=== PATIENT | female | born 1975 | race Caucasian/White ===

== ENCOUNTER 2019-09-02 13:25 | Emergency (ER) | payer SELFPAY ==
[2019-09-02 13:55] VITALS: BP 123/94; PULSE 81; RESP 18; TEMP 36.9; O2SAT 95; BMI 24.1
--- NOTE | 2019-09-02 14:09 | PC.NURSE ---
Patient requests that her sister, Sharon be contacted so that someone knows she is here. Sharon has been contacted at [phone]. Sharon is willing to come to the ER and pick patient up once discharged.
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
--- NOTE | 2019-09-02 15:03 | CT_ITS ---
WS: [id number] CT scan of the head, 09/02/2019 Clinical Data: injury Comparison: CT head, 12/05/2010. DLP: 615.[address] scans at [facility] use at least one of these dose optimization techniques: automat ed exposure control; mA and/or kV adjustment per patient size (includes targeted exams where dose is matched to clinical indication); or iterative reconstruction. Findings: The ventricular system is normal without shift. No recent infarct or hemorrhage is seen. There are no abnormal intracerebral masses. The cerebellum and brainstem are not remarkable. Bony windows of the skull and skull base show no fractures or erosions. The mastoid air cells, public relations intern al auditory canals, sella turcica, intraorbital contents, and paranasal sinuses show minimal mucoperi osteal thickening of the left frontal and right sphenoid sinus. CT/CT head wo con* [id number] Impression: Negative CT scan of the head
--- NOTE | 2019-09-02 15:03 | CT_ITS ---
WS: [id number] CT cervical spine. Additional two-dimensional coronal and sagittal reconstruction was performed. 09/01 Clinical Data: injury Comparison: CT cervical spine, 11/25/2009. DLP: 615.35 mG-cm All CT scans at [facility] use at least one of these dose optimization techniques: automat ed exposure control; mA and/or kV adjustment per patient size (includes targeted exams where dose is matched to clinical indication); or iterative reconstruction. Findings: No compression fractures are seen. There is disc space narrowing at C4-C5, C5-C6 and C6-C7. Anterior and posterior osteophyte formation at these levels is seen. The cervical spinous processes are normal in good alignment. The odontoid is unremarkable. There is no prevertebral soft tissue swelling. The soft tissues of the cervical spine and the lung apices are not remarkable. There is an old right pilar ibular fracture reduced with a plate and screws. CT/CT cervical spin wo con* [id number] Impression: 1. Negative for cervical spine fracture. 2. Osteoarthritis from C3-C7 with accompanying disc space narrowing.
--- NOTE | 2019-09-02 15:03 | XR_ITS ---
WS: [id number] Right leg including the tibia and fibula, 3 views, 09/02/2019 Clinical Data: injury Comparison: Right ankle x-ray, 09/08/2014. Findings: No fractures or dislocations are seen. The tibia and fibula are intact. The soft tissues are normal. The visualized right knee and right ankle are not remarkable. XR/XR tibia fibula RT 2V 66747 Impression: Negative for fracture.
--- NOTE | 2019-09-02 15:03 | XR_ITS ---
WS: [id number] XR wrist LT min 3V* [id number] REASON FOR EXAM: injury FINDINGS: A fractures seen off the styloid process of the ulna ages undetermined. The remaining ulna and radius were normal with no fractures or displacement. There is no soft tissue swelling seen. XR/XR wrist LT min 3V* [id number] IMPRESSION: Mild fracture off the styloid process of the ulna the age is undetermined.
[2019-09-02] MEDS: HYDROcodone-acetaminophen 5-325 mg Tablet 1 TAB PO (15:08)
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
--- NOTE | 2019-09-02 15:54 | PC.NURSE ---
Patient to CT via stretcher
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
[2019-09-02 17:06] VITALS: BP 140/75; PULSE 75; RESP 14; O2SAT 98
--- NOTE | 2019-09-03 11:58 | DCPLANNER ---
marketing manager health communications had message to schedule a follow up appointment for patient with ortho. marketing manager health communications called clinic, spoke with Sharee, gave clinic patients information. marketing manager health communications was told that patients information would be printed and reviewed. Clinic will call rehabilitation caseworker and patient with appointment information.
--- NOTE | 2019-09-04 10:41 | DCPLANNER ---
Patient had an appointment scheduled for 09.03.19 with ortho, patient did attend the appointment.
== END 2019-09-02 17:07 | disposition home or self-care (01) ==
PROVIDERS: Emergency Provider Emergency Medicine; Family Provider General Practice; PCP General Practice
DX: S52.612A Displaced fracture of left ulna styloid process, initial encounter for closed fracture (principal); S00.83XA Contusion of other part of head, initial encounter; F17.200 Nicotine dependence, unspecified, uncomplicated; Y04.2XXA Assault by strike against or bumped into by another person, initial encounter
CPT/HCPCS: 12345; 29125; 70450; 72125; 73110; 73590; 99281; 99283

== ENCOUNTER 2019-09-03 15:58 | Outpatient (CLI) | payer SELFPAY | END 2019-09-03 15:59 | disposition home or self-care (01) | LOC: SPT 15:59 | PROVIDERS: Family Provider General Practice; PCP General Practice; Visit Provider Orthopaedic Surgery | DX: M25.532 Pain in left wrist (principal) | CPT/HCPCS: L3908 ==

== ENCOUNTER 2020-02-19 14:24 | Emergency (ER) | payer SELFPAY ==
[2020-02-19 14:26] VITALS: BP 119/88; PULSE 82; RESP 16; TEMP 36.3; O2SAT 96; BMI 25.4
--- NOTE | 2020-02-19 14:40 | XRR_ITS ---
PROCEDURE INFORMATION: Exam: XR Chest, 1 View Exam date and time: 02/19/2020 2:53 PM Age: 44 years old Clinical indication: Patient HX: C/O shortness of breath ; left leg swelling; Nausea; Additional info: SOB TECHNIQUE: Imaging protocol: XR of the chest Views: 1 view. COMPARISON: CT Chest/Abdomen/Pelvis wo IV 11/15/2015 6:33 PM FINDINGS: Lungs: Mildly hyperaerated lungs consistent with deep inspiratory effort vs reactive airway disease vs mild COPD . Pleural space: Unremarkable. No pleural effusion. No pneumothorax. Heart/Mediastinum: Unremarkable. No cardiomegaly. Bones/joints: Unremarkable. XR/XR chest 1V portable [id number] IMPRESSION: Mildly hyperaerated lungs consistent with deep inspiratory effort vs reactive airway disease vs mild COPD .
--- NOTE | 2020-02-19 14:41 | ED_ITS ---
HPI - Extremity Problem General: Chief complaint: Extremity Problem,Nontraumatic Stated complaint: left leg swelling Time Seen by Provider: 02/19/20 14:33 History of Present Illness: HPI Narrative: This patient is a 44-year-old female who presents today with concerns over pain in her left leg. She noticed a bruise on the back of her leg 2 days ago and gradually the area has enlarged and become more tender and swollen. She has some tingling in her toes but no overt swelling in the lower leg. She does not know how the bruise happened. She does not recall any injury. Since she noted the bruise she also has been complaining of shortness of breath, chest heaviness, orthopnea, nausea and vomiting. She also has been having diarrhea and has had some blood in the stool. She said there is some bright red blood in the stool itself is dark. She has no history of any kind of bleeding ulcers. She smokes marijuana. She drinks about a third of a pint of vodka every day. She has been told in the past that her liver functions were abnormal but at the time she was taking lithium and blamed it on that. She has not had any recheck of her liver since then. Her PCP was Dr. Pedersen. She has had a blood clot in the past, following gallbladder surgery. She was on short-term anticoagulation but is not currently. She is a smoker. Her mother also had blood clots in her 40s. MD Complaint: extremity pain, extremity swelling and other Onset (ago): day(s) (2) Pain Consistency: constant Location: left Quality: aching Radiation: none Relieving factors: nothing Exacerbating factors: range of motion and palpation Associated symptoms: Reports chest pain, myalgias and short of breath; Deny fever(s) or rash Review of Systems General: Reports: 10 or more systems reviewed and unremarkable except in HPI and below Const: Reports: malaise; Denies: fever(s), chills or fatigue Eyes: Denies: change in vision ENMT: Denies: odynophagia Card: Reports: chest pain and orthopnea Resp: Denies: dyspnea, productive cough or non-productive cough GI: Reports: nausea and vomiting; Denies: abdominal pain : Denies: flank pain or difficulty voiding Musc: Denies: neck pain or back pain Skin/Breast: Denies: rash Neuro: Denies: headache(s), numbness in extremities or weakness in extremities Lewis/Lymph: Denies: easy bruising or easy bleeding PFSH ED PFSH: Medical History DVT (deep venous thrombosis) Fracture of left wrist Social History Smoking and tobacco status: current every day smoker Physical Exam Const: COMMON NORMALS: no acute distress, patient oriented x3, no limitations and alert GENERAL APPEARANCE: cooperative and comfortable HENMT: HEAD & SCALP: normal to inspection FACE & SINUS: normal facial exam Eye: GENERAL EYE: appearance normal, both eyes and all related structures Neck/C-Spine: COMMON NORMALS: supple, no meningeal signs and no JVD Chest: COMMONS NORMALS: normal inspection of the chest Resp: COMMON NORMALS: normal respiratory effort, No use of accessory muscles and clear to auscultation bilaterally AUSCULTATION: clear to auscultation bilaterally Cardio: COMMON NORMALS: no JVD, regular rate, regular rhythm and No murmurs present (Cardio) RATE: regular rate RHYTHM: regular rhythm GI: COMMON NORMALS: Normal to inspection, nondistended, normoactive bowel sounds present, Soft to palpation and non-tender INSPECTION: Yes normal to inspection AUSCULTATION: Yes normoactive bowel sounds PALPATION: Yes Soft to palpation Back/Pelvis: COMMON NORMALS: thoracic and lumbar spine normal to inspection Extremity: GENERAL: Yes normal exam except as noted EXTREMITY IMAGE (BACK): 1. Ecchymosis, nodular and tender Neuro: COMMON NORMALS: patient oriented x3, moves all extremities, no focal motor deficits and no sensory deficits noted SENSORIUM/ORIENTATION: Yes alert MENINGEAL SIGNS: Yes no meningeal signs Psych: COMMON NORMALS: mental status grossly normal, cooperative and normal affect Skin: COMMON NORMALS: no rashes or lesions noted and turgor normal GENERAL SKIN EXAM: no rashes or lesions noted and turgor normal Course ED course: Patient's labs show a normal d-dimer, elevated creatinine. No prior labs noted in our system. She had the ultrasound of her leg done but the results are not yet available. She got agitated and left before I had a chance to speak to her and ask her to wait. Vital Signs: Vital signs: Vital Signs Temperature 97.3 F L 02/19/20 14:26 Pulse Rate 87 02/19/20 17:16 Respiratory Rate 14 02/19/20 17:16 Blood Pressure 122/58 02/19/20 17:16 Pulse Oximetry 100 02/19/20 17:16 MDM - Extremity (Nontraumatic) Lab Data: Labs: Lab Results 02/19/20 02/19/20 02/19/20 Range/Units 14:57 14:57 14:57 WBC 8.8 (4.0-10.0) 10^3/ uL RBC 4.41 (4.1-5.3) 10^6/u L Hgb 13.6 (11.5-15.3) g/dL Hct 41.3 (37.0-47.0) % MCV 93.7 (81-99) fL MCH 30.8 (28.0-34.0) pg MCHC 32.9 (30.0-36.0) g/dL RDW 13.6 (12.1-15.1) % Plt Count 276 (130-400) 10^3/c mm MPV 9.3 (7.4-10.4) fL Neut % (Auto) 66.5 % Lymph % (Auto) 25.7 % [place] % (Auto) 5.4 % Eos % (Auto) 1.4 % Baso % (Auto) 0.8 % Neut # (Auto) 5.84 (1.8-7.7) 10^3/u L Lymph # (Auto) 2.3 (0.8-4.8) 10^3/u L [place] # (Auto) 0.5 (0.2-0.9) 10^3/u L Eos # (Auto) 0.1 (0.0-0.8) 10^3/u L Baso # (Auto) 0.1 (0.0-0.1) 10^3/u L Nucleated RBC % (a uto) 0 % Nucleated RBCs # 0.0 /100WBC PT 12.90 (12.1-14.9) SECO NDS INR 0.94 (0.8-1.2) D-Dimer <= 0.27 (0-0.59) ug/mIFE U Sodium 140 (136-145) mmol/L Potassium 4.2 (3.5-5.1) mmol/L Chloride 106 (98-107) mmol/L Carbon Dioxide 22 (22-29) mmol/L Anion Gap 16.2 (5-19) BUN 13 (6-20) mg/dL Creatinine 1.8 H (0.5-0.9) mg/dL GFR Calculation 30.3 L (90-130) mL/min Glucose 96 (65-115) mg/dL Calculated Osmolal ity 286 (285-295) mOsm/k g Lactic Acid (0.5-2.2) mmol/L Calcium 9.2 (8.5-10.5) mg/dL Magnesium 1.8 (1.7-2.3) mg/dL Total Bilirubin 0.3 (0.15-1.2) mg/dL AST 22 (0-32) U/L ALT 27 (0-33) U/L Alkaline Phosphata se 112 H (35-105) IU/L Troponin T Baselin e (0-10) ng/L Troponin T 120 Min [place] (0-10) ng/L Delta Troponin T (0-10) ABS# NT-Pro-B Natriuret Pep 57 (0-125) pg/mL Total Protein 6.9 (6.6-8.7) g/dL Albumin 3.7 (3.5-5.2) g/dL Globulin 3.2 (1.3-4.6) g/dL Lipase 48 (13-60) U/L Urine Color (Yellow) Urine Appearance (CLEAR) Urine pH (5-7) Ur Specific Gravit y (1.005-1.030) Urine Protein (Negative) Urine Glucose (UA) (Normal) Urine Ketones (Negative) Urine Blood (Negative) Urine Nitrate (Negative) Urine Bilirubin (NEGATIVE) Urine Urobilinogen (Negative) mg/dL Ur Leukocyte Lisa ase (Negative) Urine RBC (0-2) /hpf Urine WBC (0-5) /hpf Ur Squamous Epith Cells (0-5) Amorphous Sediment Urine Bacteria (NONE) Ethyl Alcohol 58 H (0-10) mg/dL Blood Type Rho(D) Type Antibody Screen 02/19/20 02/19/20 02/19/20 Range/Units 14:57 14:57 14:57 WBC (4.0-10.0) 10^3/ uL RBC (4.1-5.3) 10^6/u L Hgb (11.5-15.3) g/dL Hct (37.0-47.0) % MCV (81-99) fL MCH (28.0-34.0) pg MCHC (30.0-36.0) g/dL RDW (12.1-15.1) % Plt Count (130-400) 10^3/c mm MPV (7.4-10.4) fL Neut % (Auto) % Lymph % (Auto) % [place] % (Auto) % Eos % (Auto) % Baso % (Auto) % Neut # (Auto) (1.8-7.7) 10^3/u L Lymph # (Auto) (0.8-4.8) 10^3/u L [place] # (Auto) (0.2-0.9) 10^3/u L Eos # (Auto) (0.0-0.8) 10^3/u L Baso # (Auto) (0.0-0.1) 10^3/u L Nucleated RBC % (a uto) % Nucleated RBCs # /100WBC PT (12.1-14.9) SECO NDS INR (0.8-1.2) D-Dimer (0-0.59) ug/mIFE U Sodium (136-145) mmol/L Potassium (3.5-5.1) mmol/L Chloride (98-107) mmol/L Carbon Dioxide (22-29) mmol/L Anion Gap (5-19) BUN (6-20) mg/dL Creatinine (0.5-0.9) mg/dL GFR Calculation (90-130) mL/min Glucose (65-115) mg/dL Calculated Osmolal ity (285-295) mOsm/k g Lactic Acid 2.5 H (0.5-2.2) mmol/L Calcium (8.5-10.5) mg/dL Magnesium (1.7-2.3) mg/dL Total Bilirubin (0.15-1.2) mg/dL AST (0-32) U/L ALT (0-33) U/L Alkaline Phosphata se (35-105) IU/L Troponin T Baselin e 6 (0-10) ng/L Troponin T 120 Min [place] (0-10) ng/L Delta Troponin T (0-10) ABS# NT-Pro-B Natriuret Pep (0-125) pg/mL Total Protein (6.6-8.7) g/dL Albumin (3.5-5.2) g/dL Globulin (1.3-4.6) g/dL Lipase (13-60) U/L Urine Color (Yellow) Urine Appearance (CLEAR) Urine pH (5-7) Ur Specific Gravit y (1.005-1.030) Urine Protein (Negative) Urine Glucose (UA) (Normal) Urine Ketones (Negative) Urine Blood (Negative) Urine Nitrate (Negative) Urine Bilirubin (NEGATIVE) Urine Urobilinogen (Negative) mg/dL Ur Leukocyte Lisa ase (Negative) Urine RBC (0-2) /hpf Urine WBC (0-5) /hpf Ur Squamous Epith Cells (0-5) Amorphous Sediment Urine Bacteria (NONE) Ethyl Alcohol (0-10) mg/dL Blood Type O Positive Rho(D) Type Positive Antibody Screen Negative 02/19/20 02/19/20 Range/Units 14:58 17:10 WBC (4.0-10.0) 10^3/ uL RBC (4.1-5.3) 10^6/u L Hgb (11.5-15.3) g/dL Hct (37.0-47.0) % MCV (81-99) fL MCH (28.0-34.0) pg MCHC (30.0-36.0) g/dL RDW (12.1-15.1) % Plt Count (130-400) 10^3/c mm MPV (7.4-10.4) fL Neut % (Auto) % Lymph % (Auto) % [place] % (Auto) % Eos % (Auto) % Baso % (Auto) % Neut # (Auto) (1.8-7.7) 10^3/u L Lymph # (Auto) (0.8-4.8) 10^3/u L [place] # (Auto) (0.2-0.9) 10^3/u L Eos # (Auto) (0.0-0.8) 10^3/u L Baso # (Auto) (0.0-0.1) 10^3/u L Nucleated RBC % (a uto) % Nucleated RBCs # /100WBC PT (12.1-14.9) SECO NDS INR (0.8-1.2) D-Dimer (0-0.59) ug/mIFE U Sodium (136-145) mmol/L Potassium (3.5-5.1) mmol/L Chloride (98-107) mmol/L Carbon Dioxide (22-29) mmol/L Anion Gap (5-19) BUN (6-20) mg/dL Creatinine (0.5-0.9) mg/dL GFR Calculation (90-130) mL/min Glucose (65-115) mg/dL Calculated Osmolal ity (285-295) mOsm/k g Lactic Acid (0.5-2.2) mmol/L Calcium (8.5-10.5) mg/dL Magnesium (1.7-2.3) mg/dL Total Bilirubin (0.15-1.2) mg/dL AST (0-32) U/L ALT (0-33) U/L Alkaline Phosphata se (35-105) IU/L Troponin T Baselin e (0-10) ng/L Troponin T 120 Min [place] 6.00 (0-10) ng/L Delta Troponin T 0 (0-10) ABS# NT-Pro-B Natriuret Pep (0-125) pg/mL Total Protein (6.6-8.7) g/dL Albumin (3.5-5.2) g/dL Globulin (1.3-4.6) g/dL Lipase (13-60) U/L Urine Color Yellow (Yellow) Urine Appearance Clear (CLEAR) Urine pH 5 (5-7) Ur Specific Gravit y 1.025 (1.005-1.030) Urine Protein Neg (Negative) Urine Glucose (UA) Norm (Normal) Urine Ketones 1+ H (Negative) Urine Blood 3+ H (Negative) Urine Nitrate Negative (Negative) Urine Bilirubin Neg (NEGATIVE) Urine Urobilinogen Norm (Negative) mg/dL Ur Leukocyte Lisa ase Negative (Negative) Urine RBC 15-25 H (0-2) /hpf Urine WBC 5-10 H (0-5) /hpf Ur Squamous Epith Cells 0-4 H (0-5) Amorphous Sediment Not Reportable Urine Bacteria 3+ H (NONE) Ethyl Alcohol (0-10) mg/dL Blood Type Rho(D) Type Antibody Screen Discharge Plan Discharge Patient Disposition: Left Against Medical Advice Clinical Impression: Contusion Qualifiers: Encounter type: initial encounter Contusion area: thigh Laterality: left Qualified Code(s): S70.12XA - Contusion of left thigh, initial encounter Condition: Stable Prescriptions: No Action No Known Home Medications RF: 0 Referrals: Jose Alejandro Eng MD [Primary Care Provider] - Discharge Date/Time: 02/19/20 17:40 Coding Level of Care Code ED Manager Plan for Chg Fwd Exam Comprehensive
--- NOTE | 2020-02-19 14:41 | ECG_ITS ---
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 Measurements Intervals [place] Rate: 63 P: 37 MO: 152 QRS: 66 QRSD: 91 T: 70 QT: 428 QTc: 441 Interpretive Statements SINUS RHYTHM No previous ECG available for comparison Electronically Signed On 02-19-2020 18:51:11 CDT by Josiane Keith M.D. [email or web address]/store/NU/[id number] f
[2020-02-19 15:00] VITALS: BP 119/88; PULSE 72; RESP 14; O2SAT 96
--- NOTE | 2020-02-19 15:15 | USCV_ITS ---
Emeka Lewis Age: 44 Gender: F : 1975 Exam Date: 02/19/2020 16:01 Ordering Phys: Kari Harry MD Technologist: Chetna Solis Exam Location: [facility] [place] Indication: PAIN AND SWELLING HISTORY: Lower extremity swelling. Lower extremity pain. PROCEDURES: Venous duplex imaging was performed in only the left lower extremity. The following venous structures were evaluated: common femoral vein, profunda vein, proximal portion of the greater saphenous vein, superficial femoral vein, and the popliteal vein. In addition, the posterior tibial and peroneal trunk were evaluated. FINDINGS: Normal 2-D Doppler and augmentation and compressibility throughout the lower extremity venous structures. Additional imaging through the proximal calf veins also reveals no thrombus. Limited evaluation of the greater saphenous vein is patent with no thrombus. CONCLUSIONS No DVT left lower extremity. Dr. Nica Vincent DO (Electronically Signed) Final Date: 20 February 2020 15:49 S
[2020-02-19 15:22] LABS: Basophils # 0.1 10^3/uL (0.0-0.1); Basophils % 0.8 %; Eosinophils # 0.1 10^3/uL (0.0-0.8); Eosinophils % 1.4 %; Hematocrit 41.3 % (37.0-47.0); Hemoglobin 13.6 g/dL (11.5-15.3); Lymphocytes # 2.3 10^3/uL (0.8-4.8); Lymphocytes % 25.7 %; Mean Corpuscular HGB Conc 32.9 g/dL (30.0-36.0); Mean Corpuscular Hemoglobin 30.8 pg (28.0-34.0); Mean Corpuscular Volume 93.7 fL (81-99); Mean Platelet Volume 9.3 fL (7.4-10.4); Monocytes # 0.5 10^3/uL (0.2-0.9); Monocytes % 5.4 %; Neutrophils # 5.84 10^3/uL (1.8-7.7); Neutrophils % 66.5 %; Nucleated Red Blood Cells % 0 %; Platelet Count 276 10^3/cmm (130-400); Red Blood Count 4.41 10^6/uL (4.1-5.3); Red Cell Distribution Width 13.6 % (12.1-15.1); White Blood Count 8.8 10^3/uL (4.0-10.0)
[2020-02-19 15:26] LABS: Add Urine Microscopic? YES; Bilirubin Urine Neg (NEGATIVE); Blood Urine 3+ (Negative); Glucose Urine UA Norm (Normal); Ketones Urine 1+ (Negative); Leukocyte Esterase Urine Negative (Negative); Nitrate Urine Negative (Negative); Protein Urine Neg (Negative); Specific Gravity, Urine 1.025 (1.005-1.030); Urine Appearance Clear (CLEAR); Urine Color Yellow (Yellow); Urobilinogen Urine Norm (Negative); pH Urine 5 (5-7)
[2020-02-19 15:32] LABS: Add Urine Culture? Yes; Bacteria Urine 3+; RBC Urine 15-25 /hpf (0-2); Squamous Epithelial Cell Urine 0-4 (0-5)
[2020-02-19 15:39] LABS: INR 0.94 (0.8-1.2)
[2020-02-19 15:42] LABS: D Dimer <= 0.27 ug/mIFEU (0-0.59)
[2020-02-19 15:51] LABS: Troponin(5th) Baseline 6 ng/L (0-10)
[2020-02-19 15:52] LABS: Lactic Sepsis W/Reflex 2.5 mmol/L (0.5-2.2)
[2020-02-19 15:55] LABS: Alanine Aminotransferase 27 U/L (0-33); Albumin Level 3.7 g/dL (3.5-5.2); Alcohol Level 58 mg/dL (0-10); Alkaline Phosphatase 112 IU/L (35-105); Anion Gap 16.2 (5-19); Aspartate Amino Transferase 22 U/L (0-32); Blood Urea Nitrogen 13 mg/dL (6-20); Calcium 9.2 mg/dL (8.5-10.5); Carbon Dioxide 22 mmol/L (22-29); Chloride 106 mmol/L (98-107); Globulin 3.2 g/dL (1.3-4.6); Glomerular Filtration Rate 30.3 mL/min (90-130); Glucose 96 mg/dL (65-115); Lipase 48 U/L (13-60); Magnesium 1.8 mg/dL (1.7-2.3); NT Pro B Type Natriuretic Pept 57 pg/mL (0-125); Osmolality Calculated 286 mOsm/kg (285-295); Potassium 4.2 mmol/L (3.5-5.1); Sodium 140 mmol/L (136-145); Total Bilirubin 0.3 mg/dL (0.15-1.2); Total Protein 6.9 g/dL (6.6-8.7)
[2020-02-19 15:58] VITALS: BP 120/79; PULSE 67; RESP 14; O2SAT 97
[2020-02-19] MEDS: ondansetron 2 mg/ML SDV 2 mL 4 MG IVP (16:17)
[2020-02-19 16:51] LABS: Reflex Lactate Order REFLEX LACTIC ORDERD
[2020-02-19 17:16] VITALS: BP 122/58; PULSE 87; RESP 14; O2SAT 100
[2020-02-19 17:42] LABS: Troponin 5 2HR Delta 0 ABS# (0-10)
== END 2020-02-19 17:40 | disposition left against medical advice (07) ==
PROVIDERS: Emergency Provider Emergency Medicine; PCP General Practice
DX: S70.12XA Contusion of left thigh, initial encounter (principal); Z53.21 Procedure and treatment not carried out due to patient leaving prior to being seen by health care provider; F17.210 Nicotine dependence, cigarettes, uncomplicated; X58.XXXA Exposure to other specified factors, initial encounter
CPT/HCPCS: 12345; 36415; 71045; 80053; 80307; 81001; 83605; 83690; 83735; 83880; 84484; 85025; 85378; 85610; 86850; 86900; 87077; 87086; 87186; 93005; 93971; 96374; 96375; 99282; 99284; J2405

== ENCOUNTER 2020-03-31 20:59 | Emergency (ER) | payer SELFPAY ==
[2020-03-31 21:00] VITALS: BP 111/77; PULSE 98; RESP 22; TEMP 36.7; O2SAT 99; BMI 25.8
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
[2020-03-31] MEDS: haloperidol inj 5 mg/mL INJ 1 mL IM (21:09)
[2020-03-31] MEDS: diphenhydrAMINE 50 mg/mL SDV 1mL IM (21:11)
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
--- NOTE | 2020-03-31 21:26 | W.ED.AMS ---
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 Protein (6.6-8.7) g/dL Albumin (3.5-5.2) g/dL Globulin (1.3-4.6) g/dL HCG, Qual (Negative) Urine Color Straw (Yellow) Urine Appearance Sl hazy (CLEAR) Urine pH 5 (5-7) Ur Specific Gravit y 1.005 (1.005-1.030) Urine Protein Neg (Negative) Urine Glucose (UA) Norm (Normal) Urine Ketones Negative (Negative) Urine Blood Neg (Negative) Urine Nitrate Negative (Negative) Urine Bilirubin Neg (Negative) Urine Urobilinogen Norm (Negative) mg/dL Ur Leukocyte Lisa ase 1+ H (Negative) Urine RBC Rare (0-2) /hpf Urine WBC 0-4 H (0-5) /hpf Ur Squamous Epith Cells 0-4 H (0-5) /hpf Amorphous Sediment Not Reportable Urine Bacteria Trace (NONE) /hpf Urine Mucus Trace /hpf Urine Opiates Scre en Negative (Negative) ng/mL Ur Barbiturates Sc reen Negative (Negative) ng/mL Ur Phencyclidine S crn Negative (Negative) ng/mL Ur Amphetamines Sc reen Positive H (Negative) ng/mL U Benzodiazepines Scrn Negative (Negative) ng/mL Urine Cocaine Scre en Negative (Negative) ng/mL U Marijuana (THC) Screen Positive H (Negative) ng/mL Ethyl Alcohol 19 H (0-10) mg/dL Discharge Plan Discharge Patient Disposition: Home Clinical Impression: Alcoholic intoxication Prescriptions: No Action No Known Home Medications RF: 0 Discharge Orders: Discharge Order (Routine); Ordered 04/01/20 Ordered By: Jair Whitt Interventions: ED Discharge Assessment Last Done: 04/01/20 09:39 ED Charges Last Done: 04/01/20 09:39 Discharge Date/Time: 04/01/20 09:41 Sign Out Sign Out Data: Patient Sign Out occurred on 04/01/20 at 06:31. Patient's care was discussed, and care was transferred from Marisol Junior to Jair Whitt DO. Sign Out Comment: Case turned over to Dr. Whitt at change of shift. Last updated by Marisol Junior at 04/01/20 05:58 Coding Level of Care Code ED System Configuration Specialist for Chg Fwd Exam Comprehensive
[2020-03-31] MEDS: sodium chloride 0.9% 1,000 ML 999 ML IV ×2 (21:32→23:09)
[2020-03-31 21:37] LABS: Basophils # 0.1 10^3/uL (0.0-0.1); Basophils % 1.1 %; Eosinophils # 0.2 10^3/uL (0.0-0.8); Eosinophils % 2.3 %; Hematocrit 44.9 % (37.0-47.0); Hemoglobin 14.7 g/dL (11.5-15.3); Lymphocytes # 2.7 10^3/uL (0.8-4.8); Lymphocytes % 41.3 %; Mean Corpuscular HGB Conc 32.7 g/dL (30.0-36.0); Mean Corpuscular Hemoglobin 30.7 pg (28.0-34.0); Mean Corpuscular Volume 93.7 fL (81-99); Mean Platelet Volume 9.3 fL (7.4-10.4); Monocytes # 0.3 10^3/uL (0.2-0.9); Monocytes % 4.6 %; Neutrophils # 3.28 10^3/uL (1.8-7.7); Neutrophils % 50.4 %; Nucleated Red Blood Cells % 0 %; Platelet Count 247 10^3/cmm (130-400); Red Blood Count 4.79 10^6/uL (4.1-5.3); Red Cell Distribution Width 13.1 % (12.1-15.1); White Blood Count 6.5 10^3/uL (4.0-10.0)
[2020-03-31 21:43] VITALS: BP 111/83; PULSE 75; RESP 13; O2SAT 96
[2020-03-31 22:00] VITALS: BP 112/81; PULSE 72; RESP 13; O2SAT 91
[2020-03-31 22:00] LABS: HCG, Serum Qual Negative (Negative)
[2020-03-31 22:03] LABS: Alanine Aminotransferase 40 U/L (0-33); Albumin Level 4.2 g/dL (3.5-5.2); Alcohol Level 183 mg/dL (0-10); Alkaline Phosphatase 133 IU/L (35-105); Aspartate Amino Transferase 44 U/L (0-32); Blood Urea Nitrogen 14 mg/dL (6-20); Calcium 9.1 mg/dL (8.5-10.5); Carbon Dioxide 21 mmol/L (22-29); Chloride 104 mmol/L (98-107); Creatine Phosphokinase 79 U/L (26-192); Globulin 3.3 g/dL (1.3-4.6); Glomerular Filtration Rate 90.1 mL/min (90-130); Glucose 115 mg/dL (65-115); Osmolality Calculated 285 mOsm/kg (285-295); Sodium 137 mmol/L (136-145); Total Bilirubin 0.2 mg/dL (0.15-1.2); Total Protein 7.5 g/dL (6.6-8.7)
[2020-03-31 22:23] LABS: Urine Appearance SL Hazy (CLEAR); Urine Color Straw (Yellow)
[2020-03-31 22:24] LABS: Amphetamines Screen Urine Positive (Negative); Barbiturates Screen Urine Negative (Negative); Benzodiazepines Screen Urine Negative (Negative); Bilirubin Urine Neg (Negative); Blood Urine Neg (Negative); Cocaine Screen Urine Negative (Negative); Glucose Urine UA Norm (Normal); Ketones Urine Negative (Negative); Leukocyte Esterase Urine 1+ (Negative); Nitrate Urine Negative (Negative); Opiate Screen Urine Negative (Negative); PCP Screen Urine Negative (Negative); Protein Urine Neg (Negative); RBC Urine RARE /hpf (0-2); Specific Gravity, Urine 1.005 (1.005-1.030); Squamous Epithelial Cell Urine 0-4 /hpf (0-5); THC Screen Urine Positive (Negative); Urobilinogen Urine Norm (Negative); WBC Urine 0-4 /hpf (0-5); pH Urine 5 (5-7)
[2020-03-31 22:25] LABS: Add Urine Culture? No; Bacteria Urine TRACE /hpf; Mucus Urine TRACE /hpf
[2020-03-31] MEDS: iodixanol 320 mg/mL 100mL Btl IV (22:28)
[2020-03-31] MEDS: LORazepam 2 mg/mL INJ 1 mL IM (22:38)
--- NOTE | 2020-03-31 22:39 | PC.NURSE ---
This nurse and security escorted pt to CT. Pt became combative during CT, MD notified and he requested 1 mg ativan be given.
[2020-03-31 22:46] VITALS: BP 136/99; PULSE 82; RESP 14; O2SAT 100
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
[2020-03-31 23:10] VITALS: BP 131/97; PULSE 77; RESP 12; O2SAT 100
--- NOTE | 2020-03-31 23:10 | PC.NURSE ---
PT given the 2nd half, 1mg, of ativan per MD request, due to pt outbursts.
[2020-03-31] MEDS: haloperidol inj 5 mg/mL INJ 1 mL 2 MG IM (23:18)
[2020-03-31 23:40] VITALS: BP 145/98; PULSE 98; RESP 20; O2SAT 97
[2020-04-01] VITALS (9 sets, daily range): BP systolic 111–155; BP diastolic 74–98; PULSE 62–107; RESP 11–22; TEMP 36.6; O2SAT 95–100
--- NOTE | 2020-04-01 02:12 | PC.NURSE ---
PT is incontinent to bladder. Pt linens and gown changed. Pt placed in a brief. Pt previously placed in a brief, pt refused and took it off.
--- NOTE | 2020-04-01 04:43 | PC.NURSE ---
Pt restraints removed per MD request
[2020-04-01 04:52] LABS: Alcohol Level 19 mg/dL (0-10)
--- NOTE | 2020-04-01 05:10 | PC.SOCIAL ---
Patient restrained after being combative in ED. Unable to speak to her for initial assessment at this time. Case management staff will need to follow up once patient is more calm.
== END 2020-04-01 09:41 | disposition home or self-care (01) ==
PROVIDERS: Emergency Medicine; Emergency Provider Family Medicine; PCP General Practice
DX: F10.129 Alcohol abuse with intoxication, unspecified (principal); Y90.0 Blood alcohol level of less than 20 mg/100 ml; F17.210 Nicotine dependence, cigarettes, uncomplicated
CPT/HCPCS: 12345; 70450; 71260; 72125; 73552; 73562; 73590; 73610; 73630; 74177; 80053; 80306; 80307; 81001; 82550; 83735; 84703; 85025; 96361; 96365; 96372; 96375; 99285; J1200; J1630; J1953; J2060; J7030; Q9967

== ENCOUNTER 2020-08-05 20:34 | Inpatient (IN) | payer SELFPAY ==
[2020-08-05 20:37] VITALS: BP 126/64; PULSE 107; RESP 20; TEMP 37.1; O2SAT 95; BMI 25.8
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
[2020-08-05] MEDS: LORazepam 2 mg/mL INJ 1 mL IVP ×2 (20:56→23:53)
[2020-08-05 21:10] VITALS: BP 125/83; PULSE 88; RESP 22; O2SAT 94
[2020-08-05 21:17] LABS: HCG Qualitative Urine. Negative (Negative)
[2020-08-05] MEDS: haloperidol inj 5 mg/mL INJ 1 mL IM (21:21)
[2020-08-05] MEDS: diphenhydrAMINE 50 mg/mL SDV 1mL IM (21:22)
[2020-08-05 21:30] VITALS: BP 116/74; PULSE 76; RESP 18; O2SAT 96
[2020-08-05 21:54] LABS: Basophils # 0.1 10^3/uL (0.0-0.1); Basophils % 0.8 %; Eosinophils # 0.1 10^3/uL (0.0-0.8); Eosinophils % 0.8 %; Hematocrit 45.7 % (37.0-47.0); Hemoglobin 15.5 g/dL (11.5-15.3); Lymphocytes # 3.6 10^3/uL (0.8-4.8); Lymphocytes % 40.7 %; Mean Corpuscular HGB Conc 33.9 g/dL (30.0-36.0); Mean Corpuscular Hemoglobin 30.9 pg (28.0-34.0); Mean Corpuscular Volume 91.2 fL (81-99); Mean Platelet Volume 9.9 fL (7.4-10.4); Monocytes # 0.5 10^3/uL (0.2-0.9); Monocytes % 6.1 %; Neutrophils # 4.56 10^3/uL (1.8-7.7); Neutrophils % 51.5 %; Nucleated Red Blood Cells % 0 %; Platelet Count 285 10^3/cmm (130-400); Red Blood Count 5.01 10^6/uL (4.1-5.3); Red Cell Distribution Width 12.5 % (12.1-15.1); White Blood Count 8.9 10^3/uL (4.0-10.0)
[2020-08-05 22:00] VITALS: BP 102/68; PULSE 74; RESP 18; O2SAT 96
[2020-08-05 22:07] LABS: INR 0.96 (0.8-1.2)
[2020-08-05 22:15] LABS: Add Urine Microscopic? NO
[2020-08-05 22:30] VITALS: BP 105/73; PULSE 72; RESP 18; O2SAT 94
[2020-08-05 22:43] LABS: Bilirubin Urine Neg (Negative); Blood Urine Neg (Negative); Glucose Urine UA Norm (Normal); Ketones Urine Negative (Negative); Leukocyte Esterase Urine Negative (Negative); Nitrate Urine Negative (Negative); Protein Urine Neg (Negative); Urine Appearance Clear (CLEAR); Urine Color Yellow (Yellow); Urobilinogen Urine Norm (Negative); pH Urine 6 (5-7)
[2020-08-05 22:44] LABS: Alanine Aminotransferase 49 U/L (0-33); Albumin Level 3.8 g/dL (3.5-5.2); Alcohol Level 210 mg/dL (0-10); Alkaline Phosphatase 120 IU/L (35-105); Aspartate Amino Transferase 44 U/L (0-32); Blood Urea Nitrogen 13 mg/dL (6-20); Calcium 8.7 mg/dL (8.5-10.5); Carbon Dioxide 24 mmol/L (22-29); Chloride 103 mmol/L (98-107); Globulin 3.7 g/dL (1.3-4.6); Glomerular Filtration Rate 67.4 mL/min (90-130); Glucose 108 mg/dL (65-115); Osmolality Calculated 287 mOsm/kg (285-295); Sodium 138 mmol/L (136-145); Thyroid Stimulating Hormone 2.18 uIU/mL (0.27-4.20); Total Bilirubin 0.2 mg/dL (0.15-1.2); Total Protein 7.5 g/dL (6.6-8.7)
[2020-08-05 22:46] LABS: Amphetamines Screen Urine Negative (Negative); Barbiturates Screen Urine Negative (Negative); Benzodiazepines Screen Urine Negative (Negative); Cocaine Screen Urine Negative (Negative); Opiate Screen Urine Negative (Negative); PCP Screen Urine Negative (Negative); THC Screen Urine Positive (Negative)
[2020-08-05 22:53] LABS: Acetaminophen < 5.0 ug/mL (10-30); Salicylate < 0.3 mg/dL (3-10)
[2020-08-05 23:00] VITALS: BP 104/56; PULSE 74; RESP 18; O2SAT 94
[2020-08-06 00:49] LABS: Alcohol Level 165 mg/dL (0-10)
[2020-08-06 01:42] VITALS: BP 101/73; PULSE 97; RESP 16; TEMP 36.7; O2SAT 97
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
[2020-08-06 06:00] VITALS: BP 101/73; PULSE 97; RESP 16; TEMP 36.7; O2SAT 97
[2020-08-06] MEDS: levETIRAcetam 500 mg Tablet PO ×2 (11:35→20:38)
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
[2020-08-06 14:00] VITALS: BP 93/57; PULSE 78; RESP 18; TEMP 36.9; O2SAT 97
[2020-08-06 22:00] VITALS: BP 86/60; PULSE 60; RESP 16; TEMP 36.9; O2SAT 95
[2020-08-07] VITALS (7 sets, daily range): BP systolic 88–122; BP diastolic 56–77; PULSE 49–84; RESP 16–18; TEMP 36.4–37.2; O2SAT 94–98
--- NOTE | 2020-08-07 00:10 | PC.NURSE ---
Soft B/P contacted physician, Dr. Young, to update on patient condition. @1400 BP 93/57 @2200 BP 86/60 NURSE RETOOK BP WITH MANUAL CUFF, AROUSED HER SLIGHTLY, AND BP IS CURRENTLY 109/72. Pt has had soft blood pressures all day. pt came to NPU last night with new keppra 1000mg IM ORDER and multiple drugs received that sedated her before admission. WHILE SLEEPING PT B/P TENDS TO DROP. CONTACTED HOSPITALIST FOR CONSULT, PER DR. YOUNG'S REQUEST, VIA [employer] MESSAGING AT [phone]. PHYSICIAN REQUESTS HOSPITALIST TO CALL HIM REGARDING PATIENT.
--- NOTE | 2020-08-07 00:22 | ECG_ITS ---
[facility] Test Date: 2020-08-07 Pat Name: Emeka Lewis Department: Room: 151 Gender: Female Publisher Assistant: jose MAKR: [id number] Requested By: Josiane Jacobs Order Number: [id number] Reading MD: Miguel Hernández M.D. Measurements Intervals [place] Rate: 49 P: 24 ND: 165 QRS: 5 QRSD: 90 T: 18 QT: 460 QTc: 419 Interpretive Statements SINUS BRADYCARDIA NONSPECIFIC T-WAVE ABNORMALITY Compared to ECG 02/19/2020 15:17:48 T-wave abnormality now present Sinus rhythm no longer present Electronically Signed On 08-07-2020 16:06:39 SENIOR ELECTRICAL PROJECT MANAGER by Miguel Hernández M.D. [email or web address]
--- NOTE | 2020-08-07 00:23 | PM.CONSULT ---
Providers/Reason For Consult Consulting Physican/Specialty*: Hospitalist service Reason for Consult*: Hypotension Attending Physician: Maria M Young DO Primary Care Provider: Jose Alejandro Eng MD History of Present Illness History of Present Illness Emeka Lewis is a 44 year old female who is currently admitted in neuropsychiatric unit because of suicidal ideation, she has history of alcohol abuse and THC. Hospitalist service was requested to evaluate because of persistent hypotension. Patient was laying comfortably in her bed, was asleep when I entered the room, female nurse complaining, patient woke up and told me that she is not experiencing any chest pain, shortness of breath abdominal pain, diarrhea. She is denying neck pain or headache. She was able to tell me her name. However her answers were only 1-2 words, she did not seem confused. She endorsed not drinking enough fluids. She denies dysuria or change in bowel movements. I requested EKG, D-dimer, stat chest x-ray, her TSH is normal, clinically she looks hypovolemic, requested 1 L normal saline bolus, her hemoglobin is stable, no acute respiratory distress or chest pain. Review of Systems Const: Denies: chills Eyes: Denies: change in vision ENMT: Denies: throat pain Card: Denies: chest pain Resp: Denies: dyspnea GI: Denies: abdominal pain : Denies: flank pain Musc: Denies: neck pain Skin/Breast: Denies: rash Neuro: Denies: headache(s) Psych: Reports: depression, panic attacks, hopelessness and suicidal ideation Endo: Denies: polyuria Lewis/Lymph: Denies: easy bruising All/Imm: Denies: urticaria Meds/Allergies Home Medications and Allergies Home Medications Medication Instructions Recorded Confirmed Last Taken Type No Known Home Medications 02/19/20 08/06/20 Unknown History Allergies Allergy/AdvReac Type Severity Reaction Status Date / Time codeine Allergy Unknown Verified 03/09/20 13:54 Penicillins Allergy Unknown Verified 03/09/20 13:54 Current Medications Current Medications Generic Name Dose Route Start Last Admin Trade Name Freq PRN Reason Stop Dose Admin Folic Acid 1 mg 08/06/20 09:00 08/06/20 11:35 Folic Acid 1 Mg Tablet PO Not Given DAILY RAMAKRISHNA Levetiracetam 500 mg 08/06/20 21:00 08/06/20 20:38 Levetiracetam 500 Mg Tablet PO 500 mg 0900,2100 [facility] Administration Multivitamins Therapeutic 1 tab 08/06/20 09:00 08/06/20 11:35 Multivitamin Therapeutic Tablet PO Not Given DAILY [facility] Thiamine Mononitrate 100 mg 08/06/20 09:00 08/06/20 11:36 Thiamine 100 Mg Tablet PO Not Given DAILY [facility] PFSH Acute PFSH: Medical History (Updated 08/07/20 @ 01:22 by Josiane Jacobs MD) DVT (deep venous thrombosis) Fracture of left wrist Seizures Surgical History (Updated 08/07/20 @ 01:20 by Josiane Jacobs MD) No significant past surgical history Family History (Updated 08/07/20 @ 01:20 by Josiane Jacobs MD) Other Family history non-contributory Social History (Updated 08/07/20 @ 01:20 by Josiane Jacobs MD) Smoking and tobacco status: current every day smoker Alcohol intake: current Substance/Drug Use: current Substance/Drug use type: Marijuana Housing: House Vitals/I&O/Wt Last Vital Signs Temp 98.5 F 08/06/20 22:00 Pulse 60 08/06/20 22:00 Resp 16 08/06/20 22:00 BP 86/60 08/06/20 22:00 Pulse Ox 95 08/06/20 22:00 Weight last 48 hrs Weight 72.575 kg Physical Exam Narrative: EXAM NARRATIVE: Middle-age female She was laying comfortably in her bed was asleep at the time of my evaluation, A female sequencing machine operator was present in the room during my evaluation Clinically she looks dry with dry mucous membranes S1-S2 no murmur or signs of heart failure No sign of tension pneumothorax, she has good bilateral breath sounds without adventitious rhonchi or crackles No positive JVD sign Abdomen soft nontender bowel sound present Lower extremity no edema gangrene ulcer She is a thin frail lady She was somnolent and her answers are mostly 1-2 words however cooperative during my evaluation No neurological deficit noted, no signs of meningitis A&P Assessment and plan (1) Hypovolemia: Hypotension due to hypovolemia This seems secondary to her underlying depression not been able to eat or drink enough for her age I will give her 1 L normal saline bolus There is no sign of cardiogenic shock hemorrhagic shock obstructive shock, chest x-ray is unremarkable, will follow up with D-dimer, her TSH is normal If she is not responding to fluid resuscitation would recommend Narcan however I do suspect autonomic dysfunction due to alcohol intoxication We will give her a dose of midodrine as well. Requested an EKG as well There is no signs of sepsis, no active source of infection, she is afebrile We will continue to monitor, thanks for letting us participate in care of this patient. Please call us if you have any questions. I will sign out to hospitalist team in the morning Status: Acute Consult Attestations Medical Necessity Statement: As per NPU Time Spent in Patient Care: 30mins Coding Level of Care Code Acute Java Jsf Developer for Giovanni Morgan Diagnoses Hypovolemia E86.1
--- NOTE | 2020-08-07 00:25 | XRR_ITS ---
PROCEDURE INFORMATION: Exam: XR Chest, 1 View Exam date and time: 08/07/2020 12:30 AM Age: 44 years old Clinical indication: Other: Hypotension TECHNIQUE: Imaging protocol: XR of the chest Views: 1 view. COMPARISON: CT chest abd pel w con* 03/31/2020 10:23 PM FINDINGS: Lungs: Mild interstitial prominence without acute airspace disease. Pleural spaces: No pleural effusion. Heart/Mediastinum: Cardiac silhouette upper limits of normal size. Bones/joints: Unremarkable. XR/XR chest 1V portable [id number] IMPRESSION: Mild interstitial prominence without acute airspace disease.
[2020-08-07] MEDS: sodium chloride 0.9% 1,000 ML 999 ML IV ×2 (00:45→02:01)
[2020-08-07] MEDS: midodrine 5 mg TABLET PO (00:47)
[2020-08-07 00:59] LABS: D Dimer <= 0.27 ug/mIFEU (0-0.59); Ketone (Acetest) Serum Negative (Negative)
--- NOTE | 2020-08-07 01:54 | PC.NURSE ---
IV fluids & Now med. 1000ml of NS 0.9% -given for hypovolemia bolus at rate of 999mls/hr. medrodrine 5mg po given to increase B/P. will continue patient condition and monitor B/P Per Dr. Jacobs, repeat order of 1000ml of NS at a rate of 999mls/hr. If no improvement, contact both him and Dr. Young.
[2020-08-07] MEDS: naloxone 0.4 mg/ml SDV IVP ×2 (02:33→02:39)
--- NOTE | 2020-08-07 08:35 | PC.NURSE ---
0800: Rounding on patient. Informed patient that breakfast was here and she states that she did not want to get up. Educated patient on activity and encouraged patient to drink fluids and ambulate. LUNAW, SYSTEMS SECURITY ANALYST
[2020-08-07] MEDS: levETIRAcetam 500 mg Tablet PO ×2 (08:40→20:03)
[2020-08-07] MEDS: folic acid 1 mg Tablet PO (08:40)
[2020-08-07] MEDS: multivitamin therapeutic Tablet 1 TAB PO (08:40)
[2020-08-07] MEDS: thiamine 100 mg Tablet PO (08:40)
--- NOTE | 2020-08-07 10:12 | PC.NURSE ---
CIWA Assessment completed with Patient not responding to all questions. CIWA charted. LUNAW, SILVIA
--- NOTE | 2020-08-07 12:18 | P.PN_ITS ---
Subjective NPU Subjective: Interval history: Patient with a couple of episodes of low blood pressure readings overnight. Evaluated by hospitalist with unremarkable work-up but was given 2 L of normal saline for hypovolemia. Patient lying in bed this morning, uncooperative with interview, 1-2 word responses, unable to assess for mood although patient states that she is not suicidal Per staff report, patient mostly lying in bed, refusing food, drinks little to no liquids Mental Status Exam MSE Comments: Lying in bed, covered with blanket, not interactive, poor eye contact Psychomotor activity is decreased, no agitation I am tired, constricted Oriented to person, place Unable to fully assess thought process, thought content Insight and judgment appear to be limited at this time Vitals/I&O/Wt Last Vital Signs Temp 97.6 F 08/07/20 06:00 Pulse 84 08/07/20 06:00 Resp 16 08/07/20 06:00 BP 122/77 08/07/20 06:00 Pulse Ox 98 08/07/20 06:00 08/06/20 08/07/20 08/07/20 22:59 06:59 14:59 Intake Total 1999 Balance 1999 Weight last 48 hrs Weight 72.575 kg Data NPU : 08/05/20 21:44 08/05/20 22:10 A&P Assessment and plan (1) Suicidal ideation: Status: Acute (2) Alcohol intoxication: Status: Acute Qualifiers: Complication of substance-induced condition: with unspecified complication Qualified Code(s): F10.929 - Alcohol use, unspecified with intoxication, unspecified (3) Hypovolemia: Status: Acute (4) Seizures: Status: Acute Additional A&P Information Patient continues to not participate in evaluation, overnight episodes of hypotension although subsequently having normal blood pressure readings, currently not endorsing any suicidal ideation CONTINUE CIWA Continue to encourage patient to participate in unit activities, unit milieu Encouraged to drink fluids, eat her meals Attestations NPU Medical Necessity Statement*: Continues require psychiatric hospitalization given recent suicidal ideation with unclear mood state, recent alcohol intoxication Coding Level of Care Code Acute Nuisance Wildlife Specialist for Giovanni Morgan Diagnoses Suicidal ideation R45.851 Alcohol intoxication F10.929 Complication of substance-induced condition: with unspecified complication Hypovolemia E86.1 Seizures R56.9
[2020-08-07 12:23] LABS: Hepatitis A Antibody IgM Non-Reactive (Nonreactive); Hepatitis B Core IgM Non-Reactive (Nonreactive); Hepatitis B Surface Antigen Non-Reactive (Nonreactive)
[2020-08-07 12:58] LABS: Hepatitis C Virus Antibody Reactive (Nonreactive)
--- NOTE | 2020-08-07 13:03 | P.PN_ITS ---
Subjective Subjective: Interval history: Patient denies any complaints but does not really seem in the mood to talk. Since evaluation yesterday and fluids she has been eating and drinking better and blood pressure has been adequate. Medications: Reviewed: Yes Vitals/I&O/Wt Last Vital Signs Temp 97.6 F 08/07/20 06:00 Pulse 84 08/07/20 06:00 Resp 16 08/07/20 06:00 BP 122/77 08/07/20 06:00 Pulse Ox 98 08/07/20 06:00 08/06/20 08/07/20 08/07/20 22:59 06:59 14:59 Intake Total 1999 Balance 1999 Weight last 48 hrs Weight 72.575 kg Physical Exam Narrative: EXAM NARRATIVE: General exam is a female who not answers yes or no to questions Cardiovascular regular in rhythm without murmur Lungs clear Abdomen is soft with positive bowel sounds Extremities no cyanosis clubbing or edema Data : 08/05/20 21:44 08/05/20 22:10 A&P Assessment and plan (1) Hypovolemia: Associated with hypotension This has resolved since increasing intake of fluids as well as saline bolus At this point will sign off Please call with any questions. Status: Acute Attestations Medical Necessity Statement*: As per primary Coding Level of Care Code Acute Blow Up Operator for Giovanni Morgan Diagnoses Hypovolemia E86.1
--- NOTE | 2020-08-07 16:24 | PC.NURSE ---
Patient came to window requesting to speak to someone about leaving. Vic from [employer] spoke with patient explaining that she was placed on a 96 hour hold and that she is unable to leave. Patient requested to speak to physician to leave. Patient informed by myself that she did speak with the physician and she stated she had not. ADRIEN Tovar was speaking with patient to help de-escalte and patient picks up the phone on the wall and starts slamming the maintenance worker municipal in to the phone and screaming profanities. Vic from [employer], myself and ADRIEN Tovar is present. Patient then goes to her room and slams side table. Guy talks with patient and removes table from room. ADRIEN Tovar asked patient if she would like something to help with the agitation and patient refuses. Patient returns to bed. Will continue to closely monitor patient. SILVIA GARCIA
--- NOTE | 2020-08-07 18:25 | PC.NURSE ---
Patient came to window asking for something to eat . Patients tray was warmed and offered patient a zyprexa for agitation as she is agitated and anxious by slamming her room door and demanding to go home . Patient was educated on Zyprexa and patient walked away from this nurse while giving education. Will continue to monitor. JOSE, GOVERNMENT CONTRACTS MANAGER
[2020-08-07] MEDS: OLANZapine 5 mg ODT PO (20:03)
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
[2020-08-08 00:14] VITALS: BP 100/66; PULSE 54; RESP 15; O2SAT 95
--- NOTE | 2020-08-08 00:14 | PC.NURSE ---
B/P MONITORING B/P IS 100/66, RR 16 AT REST SUPINE, MO IS 54, AND O2 IS 95% ON RA. NURSING WILL BE MONITORING BLOOD PRESSURES CLOSER THIS EVENING D/T HYPOVOLUMIA LAST NIGHT. REQUESTED EVENT SET UP SPECIALIST TO MONITOR, DOCUMENT, AND REPORT BLOOD PRESSURES EVERY 1-2 HOURS TO RN TO ENSURE PT SAFETY.
[2020-08-08 03:05] VITALS: BP 93/60; PULSE 56; RESP 15; O2SAT 98
[2020-08-08 06:00] VITALS: BP 99/64; PULSE 57; RESP 15; TEMP 36.4; O2SAT 94
[2020-08-08] MEDS: multivitamin therapeutic Tablet 1 TAB PO (08:18)
[2020-08-08] MEDS: folic acid 1 mg Tablet PO (08:18)
[2020-08-08] MEDS: thiamine 100 mg Tablet PO (08:18)
[2020-08-08] MEDS: levETIRAcetam 500 mg Tablet PO ×2 (08:18→19:43)
--- NOTE | 2020-08-08 11:20 | PM.NPN ---
Subjective NPU Subjective: Interval history: Minimally active on the milieu, somewhat irritable at times with staff telling them that she will leave when she wants to leave when prompted to get up and move around in the milieu and to drink fluids. Patient does not appear to reaffirm her understanding about concerns with her blood pressure and minimal fluid and food intake. Denies any current depressive symptoms, denies any suicidal ideation Denies any auditory or visual hallucinations Denies any interval withdrawal symptoms Reports last use of methamphetamine a couple weeks ago, currently not interested in substance rehab or outpatient substance counseling Compliant with medication, denies any medication side effects Mental Status Exam MSE Comments: Lying in bed, covered with blanket, not interactive, poor eye contact Speech is low volume, normal rate, spontaneous although requires prompting for responses, not pressured Psychomotor activity is decreased, no agitation I am okay, constricted Oriented to person, place Unable to fully assess thought process, thought content Insight and judgment appear to be limited at this time Vitals/I&O/Wt Last Vital Signs Temp 97.5 F L 08/08/20 06:00 Pulse 57 L 08/08/20 06:00 Resp 15 08/08/20 06:00 BP 99/64 08/08/20 06:00 Pulse Ox 94 08/08/20 06:00 Data NPU : 08/05/20 21:44 08/05/20 22:10 A&P Assessment and plan (1) Suicidal ideation: Status: Acute (2) Alcohol intoxication: Status: Acute Qualifiers: Complication of substance-induced condition: with unspecified complication Qualified Code(s): F10.929 - Alcohol use, unspecified with intoxication, unspecified (3) Hypovolemia: Status: Acute (4) Seizures: Status: Acute Additional A&P Information Continues to not communicate her understanding of the serious nature of persistent low blood pressures with minimal intake by mouth as well as ongoing alcohol and substance use with comorbid seizure disorder. Continues to have decreased motivation to participate in care. Continues to be on 96-hour hold and would benefit from observation and encouragement to increase food and fluid intake. CONTINUE current medication, continue to monitor Attestations NPU Medical Necessity Statement*: Continues require psychiatric hospitalization for observation given recent suicidal ideation and ongoing decreased energy and interest in participating in care Coding Level of Care Code Acute Solar Energy Technician for [facility] Fwd Diagnoses Suicidal ideation R45.851 Alcohol intoxication F10.929 Complication of substance-induced condition: with unspecified complication Hypovolemia E86.1 Seizures R56.9
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
[2020-08-08 14:00] VITALS: PULSE 18
[2020-08-08] MEDS: hyDROXYzine 25 mg Capsule 50 MG PO (19:42)
[2020-08-08] MEDS: OLANZapine 10 mg TABLET PO (19:42)
[2020-08-08 22:00] VITALS: BP 103/66; PULSE 68; RESP 16; TEMP 36; O2SAT 94
[2020-08-09 02:39] VITALS: BMI 25.8
[2020-08-09 06:00] VITALS: BP 101/64; PULSE 54; RESP 18; TEMP 36.9; O2SAT 96
[2020-08-09] MEDS: levETIRAcetam 500 mg Tablet PO ×2 (08:37→20:15)
[2020-08-09] MEDS: multivitamin therapeutic Tablet 1 TAB PO (08:37)
[2020-08-09] MEDS: folic acid 1 mg Tablet PO (08:37)
[2020-08-09] MEDS: thiamine 100 mg Tablet PO (08:37)
--- NOTE | 2020-08-09 11:40 | PM.NPN ---
Subjective NPU Subjective: Interval history: Patient is irritable and somewhat uncooperative with interview but denies any current depressive symptoms She denies any suicidal ideation Continues to be dismissive about recent drops in her blood pressure with poor by mouth intake of food and water Denies any auditory or visual hallucinations, denies any delusions Continues to refuse starting an antidepressant Per nurse report, some disruptive behavior yesterday but was limited and redirected behaviorally Mental Status Exam MSE Comments: Lying in bed, somewhat cooperative with interview providing short responses, poor eye contact Speech is low volume, normal rate, spontaneous although requires prompting for responses, not pressured Psychomotor activity is decreased, no agitation I am fine, constricted Oriented to person, place Linear but brief, no flight of ideas Does not appear to be attending to any internal stimuli, no suicidal ideation, no hallucinations, no delusions Insight and judgment appear to be limited at this time Vitals/I&O/Wt Last Vital Signs Temp 98.5 F 08/09/20 06:00 Pulse 54 L 08/09/20 06:00 Resp 18 08/09/20 06:00 BP 101/64 08/09/20 06:00 Pulse Ox 96 08/09/20 06:00 Weight last 48 hrs Weight 72.575 kg Data NPU : 08/05/20 21:44 08/05/20 22:10 A&P Assessment and plan (1) Suicidal ideation: Status: Acute (2) Alcohol intoxication: Status: Acute Qualifiers: Complication of substance-induced condition: with unspecified complication Qualified Code(s): F10.929 - Alcohol use, unspecified with intoxication, unspecified (3) Hypovolemia: Status: Acute (4) Seizures: Status: Acute Additional A&P Information Patient continues to be somnolent, mostly lying in bed throughout the day, irritable, uncooperative, blood pressure continues to be lower than prior hospitalization baseline, denies any current psychiatric symptoms, continues to not appreciate the importance of improving by mouth intake, need to start antidepressant Follow-up CBC to ensure downtrending white count Continue to monitor, anticipate coordination with social work tomorrow for follow-up substance counseling psychiatric evaluation and primary care follow-up post discharge tomorrow Attestations NPU Medical Necessity Statement*: Continues require psychiatric hospitalization for observation for any return of suicidal ideation, behavior and coordination for safe discharge Coding Level of Care Code Acute Rotary Rig Engine Operator for [facility] Fwd Diagnoses Suicidal ideation R45.851 Alcohol intoxication F10.929 Complication of substance-induced condition: with unspecified complication Hypovolemia E86.1 Seizures R56.9
[2020-08-09 12:31] LABS: Alanine Aminotransferase 45 U/L (0-33); Albumin Level 3.6 g/dL (3.5-5.2); Alkaline Phosphatase 117 IU/L (35-105); Aspartate Amino Transferase 40 U/L (0-32); Blood Urea Nitrogen 19 mg/dL (6-20); Calcium 9.3 mg/dL (8.5-10.5); Carbon Dioxide 26 mmol/L (22-29); Chloride 103 mmol/L (98-107); Globulin 3.2 g/dL (1.3-4.6); Glomerular Filtration Rate 90.1 mL/min (90-130); Glucose 115 mg/dL (65-115); Osmolality Calculated 287 mOsm/kg (285-295); Sodium 137 mmol/L (136-145); Total Bilirubin 0.2 mg/dL (0.15-1.2); Total Protein 6.8 g/dL (6.6-8.7)
[2020-08-09 12:37] LABS: Basophils # 0.1 10^3/uL (0.0-0.1); Eosinophils # 0.1 10^3/uL (0.0-0.8); Eosinophils % 2.1 %; Hematocrit 41.7 % (37.0-47.0); Hemoglobin 13.8 g/dL (11.5-15.3); Lymphocytes # 1.7 10^3/uL (0.8-4.8); Lymphocytes % 29.2 %; Mean Corpuscular HGB Conc 33.1 g/dL (30.0-36.0); Mean Corpuscular Hemoglobin 31.1 pg (28.0-34.0); Mean Corpuscular Volume 93.9 fL (81-99); Mean Platelet Volume 9.5 fL (7.4-10.4); Monocytes # 0.4 10^3/uL (0.2-0.9); Monocytes % 7.1 %; Neutrophils # 3.49 10^3/uL (1.8-7.7); Neutrophils % 60.4 %; Nucleated Red Blood Cells % 0 %; Platelet Count 228 10^3/cmm (130-400); Red Blood Count 4.44 10^6/uL (4.1-5.3); Red Cell Distribution Width 12.2 % (12.1-15.1); White Blood Count 5.8 10^3/uL (4.0-10.0)
[2020-08-09 12:40] LABS: Anion Gap 12.2 (5-19); Potassium 4.2 mmol/L (3.5-5.1)
[2020-08-09 13:05] VITALS: BP 102/66; PULSE 64; RESP 18; TEMP 36.9
[2020-08-09 20:00] VITALS: BP 112/73; PULSE 80; RESP 17; TEMP 36.8; O2SAT 95
[2020-08-09] MEDS: trazodone 50 mg Tablet PO ×2 (20:15→22:50)
[2020-08-09] MEDS: hyDROXYzine 25 mg Capsule 50 MG PO (20:15)
[2020-08-10 06:00] VITALS: BP 116/76; PULSE 65; RESP 17; TEMP 36.6; O2SAT 98
[2020-08-10] MEDS: multivitamin therapeutic Tablet 1 TAB PO (08:28)
[2020-08-10] MEDS: folic acid 1 mg Tablet PO (08:28)
[2020-08-10] MEDS: levETIRAcetam 500 mg Tablet PO (08:28)
[2020-08-10] MEDS: thiamine 100 mg Tablet PO (08:28)
[2020-08-10 09:33] VITALS: BP 116/76; PULSE 65; RESP 17; TEMP 36.6; O2SAT 98
--- NOTE | 2020-08-10 09:49 | P.DS_ITS ---
Diagnoses at Discharge Discharge Diagnosis (1) Suicidal ideation: Status: Acute (2) Alcohol intoxication: Status: Acute Qualifiers: Complication of substance-induced condition: with unspecified complication Qualified Code(s): F10.929 - Alcohol use, unspecified with intoxication, unspecified (3) Hypovolemia: Status: Acute (4) Seizures: Status: Acute Reason for Visit Reason for Visit: 96 hr hold Hospital Course Hospital Course 44-year-old female admitted to the inpatient psychiatry unit for suicidal ideation in the context of alcohol intoxication and recent methamphetamine use. Patient has a history of seizure disorder and was started on Keppra 500 mg twice daily as well as CIWA protocol and monitored for seizures. Patient was so horrific, mostly staying in her room throughout her hospital stay and was noted to have some hypotensive episodes during her hospital stay for which hospitalist was consulted and worked up which was found to be unremarkable but was given 2 L of normal saline with good response. Patient continued to have poor by mouth intake of food and water throughout her hospital stay and noted to have some baseline lower blood pressure readings and pulse then previous hospitalizations. Patient denied any mood symptoms and denied any psychotic symptoms throughout her hospital stay. There was some concern initially about self care given her poor by mouth intake but patient started to increase her intake prior to discharge after discussing this with her. Patient had also noted some recent depressive symptoms but did not elaborate but refused to start an antidepressant because she believed that it would extend her hospital stay. Patient was also counseled on need for abstaining from the use of substances and alcohol as well as the need for follow-up with primary care given the observation of lower blood pressures and pulse than previous hospitalization which she communicated her un derstanding. Patient was not suicidal and did not appear to pose an imminent threat of harm to self or others at the time of discharge. Low to moderate risk of harm to self given no current suicidal ideation and no current reported psychiatric symptoms although patient may continue to have an elevated risk if she continues to use substances and alcohol and continues to be noncompliant with medication and medication management follow-up leading to unexpected, impulsive behavior. Risk mitigation included psychiatric hospitalization for observation for return of any suicidal ideation or behaviors as well as observation for improved self-care as well as recommendation to abstain from the use of substances and alcohol and need for follow-up with outpatient psychiatry and primary care. Patient was able to communicate her understanding of the need to abstain from the use of substances and alcohol as well as the need for outpatient primary care and psychiatry follow-up in order to further mitigate her risk of harm to self and others. Discharge Data Data Completed and Pending: Completed Studies During Hospitalization Category Date Time Status XR chest 1V padmini ble [id number] Stat Exams 08/07/20 00:25 Completed Labs from last 24 hours 08/09/20 08/09/20 12:02 12:02 WBC 5.8 RBC 4.44 Hgb 13.8 Hct 41.7 MCV 93.9 MCH 31.1 MCHC 33.1 RDW 12.2 Plt Count 228 MPV 9.5 Neut % (Auto) 60.4 Lymph % (Auto) 29.2 Dawes % (Auto) 7.1 Eos % (Auto) 2.1 Baso % (Auto) 1.0 Neut # (Auto) 3.49 Lymph # (Auto) 1.7 Dawes # (Auto) 0.4 Eos # (Auto) 0.1 Baso # (Auto) 0.1 Nucleated RBC % (a uto) 0 Nucleated RBCs # 0.0 Sodium 137 Potassium 4.2 Chloride 103 Carbon Dioxide 26 Anion Gap 12.2 BUN 19 Creatinine 0.7 GFR Calculation 90.1 Glucose 115 Calculated Osmolal ity 287 Calcium 9.3 Total Bilirubin 0.2 AST 40 H ALT 45 H Alkaline Phosphata se 117 H Total Protein 6.8 Albumin 3.6 Globulin 3.2 Vitals: Last Vital Signs Temp 97.9 F 08/10/20 09:33 Pulse 65 08/10/20 09:33 Resp 17 08/10/20 09:33 BP 116/76 08/10/20 09:33 Pulse Ox 98 08/10/20 09:33 Discharge Plan Discharge Patient Disposition: Home Condition: Stable Prescriptions: No Action No Known Home Medications RF: 0 Discharge Orders: Discharge Order (Routine); Ordered 08/10/20 Ordered By: Maria M Young Referrals: [facility] [Outside] - 4-7 days (Complete intake paperwork given to you while at the hospital and return to [facility] when finished to be scheduled for an assessment.) [facility] [Outside] (Resource for inpatient or outpatient substance abuse treatment.) Antonella Diego DO [Physician] - 08/26/20 2:00 pm (Please follow up to establish primary care with Dr. Diego and have your blood pressure assessed.) Discharge Diet: Regular Discharge Activity: Resume usual activity Patient Instructions: Alcohol Abuse Discharge Attestations NPU Time Spent in Discharge Care*: greater than 30 min Status at Discharge: Cognitive status at discharge: cognitively intact , Behavioral status at discharge: cooperative , Functional status at discharge: independent ambulation Overall status at discharge: patient is back to baseline Coding Level of Care Code Acute Carpenter'S Assistant for [facility] Fwd Diagnoses Suicidal ideation R45.851 Alcohol intoxication F10.929 Complication of substance-induced condition: with unspecified complication Hypovolemia E86.1 Seizures R56.9
[2020-08-10 09:51] VITALS: BP 116/76; PULSE 65; RESP 17; TEMP 36.6; O2SAT 98
== END 2020-08-10 11:10 | disposition home or self-care (01) | DRG 897 ==
LOC: ER 22:55 → NP 23:15
PROVIDERS: Internal Medicine; Admitting Provider Psychiatry & Neurology Psychiatry; Emergency Provider Emergency Medicine; PCP General Practice; Visit Provider Psychiatry & Neurology Psychiatry
DX: F10.129 Alcohol abuse with intoxication, unspecified (principal); R45.851 Suicidal ideations; G40.909 Epilepsy, unspecified, not intractable, without status epilepticus; Z86.718 Personal history of other venous thrombosis and embolism; F17.210 Nicotine dependence, cigarettes, uncomplicated; F15.10 Other stimulant abuse, uncomplicated; F12.90 Cannabis use, unspecified, uncomplicated; I95.9 Hypotension, unspecified; E86.1 Hypovolemia
CPT/HCPCS: 36415; 71045; 80053; 80074; 80306; 80307; 81003; 81025; 82009; 84443; 85025; 85378; 85610; 93005; 96372; 96374; 96375; 99285; J1200; J1630; J1953; J2060; J2310; J7030

== ENCOUNTER 2020-11-28 22:02 | Emergency (ER) | payer SELFPAY ==
[2020-11-28 22:19] VITALS: BP 131/87; PULSE 90; RESP 18; TEMP 36.2; O2SAT 95; BMI 22.8
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
[2020-11-28 23:34] VITALS: PULSE 90; RESP 16; O2SAT 95
[2020-11-28] MEDS: HYDROcodone-acetaminophen 7.5-325 mg Tablet 1 TAB PO (23:34)
== END 2020-11-28 23:35 | disposition home or self-care (01) ==
PROVIDERS: Emergency Provider Emergency Medicine
DX: S50.01XA Contusion of right elbow, initial encounter (principal); S91.311A Laceration without foreign body, right foot, initial encounter; X99.0XXA Assault by sharp glass, initial encounter
CPT/HCPCS: 73080; 73630; 99283

== ENCOUNTER 2021-01-24 20:46 | Emergency (ER) | payer SELFPAY ==
[2021-01-24 20:47] VITALS: BP 159/102; PULSE 89; RESP 20; O2SAT 97; BMI 27.4
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
--- NOTE | 2021-01-24 20:47 | CTR_ITS ---
PROCEDURE INFORMATION: Exam: CT Head Without Contrast Exam date and time: 01/24/2021 8:47 PM Age: 45 years old Clinical indication: Altered mental status/memory loss; Confusion or disorientation; Patient HX: ETOH - seizure, ams/combative TECHNIQUE: Imaging protocol: Computed tomography of the head without contrast. Radiation optimization: All CT scans at this facility use at least one of these dose optimization techniques: automated exposure control; mA and/or kV adjustment per patient size (includes targeted exams where dose is matched to clinical indication); or iterative reconstruction. COMPARISON: CT head wo con* [id number] 03/31/2020 10:16 PM RADIATION DOSE METRICS: Total DLP (mGy-cm): 834.62 FINDINGS: Brain: No acute intracranial hemorrhage or mass effect. No definite acute infarct by CT. MRI could be more sensitive/specific for detection, as clinically directed. Cerebral ventricles: Ventricle size is normal for age. Paranasal sinuses: Minimal mucosal thickening in the ethmoid and left maxillary sinuses. Included paranasal sinuses otherwise appear essentially clear. Mastoid air cells: No significant acute finding. Bones/joints: No definite acute skull fracture. CT/CT head wo con* [id number] IMPRESSION: 1. No acute intracranial hemorrhage or mass effect. 2. No definite acute infarct by CT, see above. 3. Other findings discussed above. Radiation Dose CTDIVOL = (mGy): DLP = 834.62 (mGy-cm)
--- NOTE | 2021-01-24 20:49 | ED_ITS ---
Documented by User: Frankie Graves MD 01/25/21 23:32 HPI - Seizure General: Chief Complaint: Seizure Stated Complaint: Seizure, ETOH, Combative Time Seen by Provider: 01/24/21 20:47 History of Present Illness: HPI Narrative: Emeka Lewis is a 45-year-old lady with unclear history who presents to the emergency department due to seizure- like activity. She presents postictal/chemically sedated and does not provide meaningful supplemental history. History is further limited by the fact that she was flown to this facility after being picked up by a separate EMS ground unit. Per report the patient was drinking and doing methamphetamine and had witnessed seizures. It is possible that the patient has previous history of seizures though the semiology and other nature of these events is unclear. Per EMS report the patient had 4 witnessed tonic-clonic seizure events via ground EMS and then an additional 1 approximately 20 minutes prior to arrival at this facility at which point she received 5 mg of IV Versed. Based on EMS report there was periods of lucidity with likely return to baseline in between seizures. History is otherwise limited by patient's current mental status and acuity of condition. Supplemental history provided by patient's long-term fianc? upon his arrival is that she is a daily drinker and has a history of epilepsy not currently on AEDs. She frequently has seizures associated with drinking although these do not occur that often likely less than 1 or 2/month but almost always associated with intoxication. She drank approximately 1.5 L of hard alcohol today and subsequently had repeated episodes where she fell asleep and then seizures. Seizures are tonic-clonic based on description. The exact inciting event of epilepsy is unclear and a formal diagnosis is also somewhat unclear. Fianc? reports that he has been with her all day and she did not have any trauma. No other significant changes in health reported. complaint: seizure Review of Systems General: Reports: ROS unobtainable due to mental status PFS ED PFSH: Medical History DVT (deep venous thrombosis) Fracture of left wrist Injury, self-inflicted Seizures Surgical History No significant past surgical history Family History Other Family history non-contributory Social History Smoking and tobacco status: current every day smoker Alcohol intake: current Housing: House Physical Exam Narrative: EXAM NARRATIVE: GENERAL/CONSTITUTIONAL - ill-appearing with altered mental status. Eyes - PERRL, no conjunctival injection ENMT - Atraumatic external nose and ears. TMs without hemotympanum. Moist mucous membranes NECK - supple. trachea midline CARDIOVASCULAR - regular rate and rhythm. Peripheral pulses 2+ and equal RESPIRATORY - coarse breath sounds throughout. No retractions or accessory muscle use. ABDOMEN/GI - Nontender/Nondistended. No tenderness to percussion or evidence of peritonitis MSK - Extremities without obvious deformity or tenderness to palpation SKIN - Warm, Dry. Scattered abrasions. NEURO - patient is responsive to pain and mumbles but does not provide meaningful history. PSYCH - impaired cognition Course ED course: - Patient was seen and evaluated by me at bedside - Patient placed on cardiac monitors, IV access obtained - Initial evaluation notable for decreased level of consciousness. Patient has adequate airway protection and is responsive to painful stimuli. - Labs and imaging obtained and reviewed - Fluids, thiamine and cobalamin ordered - Labs notable for no significant hematologic or metabolic abnormalities. - Imaging notable for no lobar consolidation appreciated on chest x-ray. CT reads without significant acute traumatic injury. - Upon serial reexamination after treatment the patient was slowly improving with improvement in mental status - Based on patient history, evaluation, labs, and imaging as interpreted the most likely cause of the patient's condition is seizure with unclear underlying etiology possibly related to reported epilepsy in combination with substance abuse - Patient care handed off to overnight ED attending Dr. Corrigan pending reevaluation for clinical sobriety. Vital Signs: Vital signs: Vital Signs Pulse Rate 70 01/24/21 23:00 Respiratory Rate 14 01/24/21 23:00 Blood Pressure 148/103 01/24/21 23:00 Pulse Oximetry 100 01/24/21 23:00 MDM - Seizure Medical Records: Attestation: I reviewed the patient's medical records. Lab Data: Attestation: I reviewed the patient's lab results. Labs: Lab Results 01/24/21 01/24/21 01/24/21 Range/Units 21:00 21:00 21:00 WBC 5.8 (4.0-10.0) 10^3/ uL RBC 4.26 (4.1-5.3) 10^6/u L Hgb 13.2 (11.5-15.3) g/dL Hct 40.6 (37.0-47.0) % MCV 95.3 (81-99) fL MCH 31.0 (28.0-34.0) pg MCHC 32.5 (30.0-36.0) g/dL RDW 13.0 (12.1-15.1) % Plt Count 266 (130-400) 10^3/c mm MPV 9.3 (7.4-10.4) fL Neut % (Auto) 63.6 % Lymph % (Auto) 27.9 % Treasure % (Auto) 5.9 % Eos % (Auto) 1.4 % Baso % (Auto) 0.9 % Neut # (Auto) 3.70 (1.8-7.7) 10^3/u L Lymph # (Auto) 1.6 (0.8-4.8) 10^3/u L Treasure # (Auto) 0.3 (0.2-0.9) 10^3/u L Eos # (Auto) 0.1 (0.0-0.8) 10^3/u L Baso # (Auto) 0.1 (0.0-0.1) 10^3/u L Nucleated RBC % (a uto) 0 % Nucleated RBCs # 0.0 /100WBC Sodium 140 (136-145) mmol/L Potassium 4.0 (3.5-5.1) mmol/L Chloride 105 (98-107) mmol/L Carbon Dioxide 22 (22-29) mmol/L Anion Gap 17.0 (5-19) BUN 12 (6-20) mg/dL Creatinine 0.7 (0.5-0.9) mg/dL GFR Calculation 89.7 L (90-130) mL/min Glucose 97 (65-115) mg/dL POC Glucose (70-110) mg/dL Calculated Osmolal ity 290 (285-295) mOsm/k g Lactate 1.5 (0.5-2.2) mmol/L Calcium 8.5 (8.5-10.5) mg/dL Phosphorus 3.4 (2.5-4.5) mg/dL Magnesium 2.1 (1.7-2.3) mg/dL Total Bilirubin 0.2 (0.15-1.2) mg/dL AST 92 H (0-32) U/L ALT 102 H (0-33) U/L Alkaline Phosphata se 152 H (35-105) IU/L Creatine Kinase 45 (26-192) U/L Total Protein 6.6 (6.6-8.7) g/dL Albumin 4.0 (3.5-5.2) g/dL Globulin 2.6 (1.3-4.6) g/dL TSH 3.53 (0.27-4.20) uIU/ mL HCG, Qual (Negative) Urine Color (Yellow) Urine Appearance (CLEAR) Urine pH (5-7) Ur Specific Gravit y (1.005-1.030) Urine Protein (Negative) Urine Glucose (UA) (Normal) Urine Ketones (Negative) Urine Blood (Negative) Urine Nitrate (Negative) Urine Bilirubin (Negative) Urine Urobilinogen (Negative) mg/dL Ur Leukocyte Lisa ase (Negative) Salicylates < 0.3 L (3-10) mg/dL Urine Opiates Scre en (Negative) ng/mL Acetaminophen < 5.0 L (10-30) ug/mL Ur Barbiturates Sc reen (Negative) ng/mL Ur Phencyclidine S crn (Negative) ng/mL Ur Amphetamines Sc reen (Negative) ng/mL U Benzodiazepines Scrn (Negative) ng/mL Urine Cocaine Scre en (Negative) ng/mL U Marijuana (THC) Screen (Negative) ng/mL Ethyl Alcohol 98 H (0-10) mg/dL 01/24/21 01/24/21 01/24/21 Range/Units 21:00 21:52 22:07 WBC (4.0-10.0) 10^3/ uL RBC (4.1-5.3) 10^6/u L Hgb (11.5-15.3) g/dL Hct (37.0-47.0) % MCV (81-99) fL MCH (28.0-34.0) pg MCHC (30.0-36.0) g/dL RDW (12.1-15.1) % Plt Count (130-400) 10^3/c mm MPV (7.4-10.4) fL Neut % (Auto) % Lymph % (Auto) % Treasure % (Auto) % Eos % (Auto) % Baso % (Auto) % Neut # (Auto) (1.8-7.7) 10^3/u L Lymph # (Auto) (0.8-4.8) 10^3/u L Treasure # (Auto) (0.2-0.9) 10^3/u L Eos # (Auto) (0.0-0.8) 10^3/u L Baso # (Auto) (0.0-0.1) 10^3/u L Nucleated RBC % (a uto) % Nucleated RBCs # /100WBC Sodium (136-145) mmol/L Potassium (3.5-5.1) mmol/L Chloride (98-107) mmol/L Carbon Dioxide (22-29) mmol/L Anion Gap (5-19) BUN (6-20) mg/dL Creatinine (0.5-0.9) mg/dL GFR Calculation (90-130) mL/min Glucose (65-115) mg/dL POC Glucose 106 (70-110) mg/dL Calculated Osmolal ity (285-295) mOsm/k g Lactate (0.5-2.2) mmol/L Calcium (8.5-10.5) mg/dL Phosphorus (2.5-4.5) mg/dL Magnesium (1.7-2.3) mg/dL Total Bilirubin (0.15-1.2) mg/dL AST (0-32) U/L ALT (0-33) U/L Alkaline Phosphata se (35-105) IU/L Creatine Kinase (26-192) U/L Total Protein (6.6-8.7) g/dL Albumin (3.5-5.2) g/dL Globulin (1.3-4.6) g/dL TSH (0.27-4.20) uIU/ mL HCG, Qual Negative (Negative) Urine Color Yellow (Yellow) Urine Appearance Clear (CLEAR) Urine pH 6 (5-7) Ur Specific Gravit y 1.020 (1.005-1.030) Urine Protein Neg (Negative) Urine Glucose (UA) Norm (Normal) Urine Ketones Negative (Negative) Urine Blood Neg (Negative) Urine Nitrate Negative (Negative) Urine Bilirubin Neg (Negative) Urine Urobilinogen Norm (Negative) mg/dL Ur Leukocyte Lisa ase Negative (Negative) Salicylates (3-10) mg/dL Urine Opiates Scre en (Negative) ng/mL Acetaminophen (10-30) ug/mL Ur Barbiturates Sc reen (Negative) ng/mL Ur Phencyclidine S crn (Negative) ng/mL Ur Amphetamines Sc reen (Negative) ng/mL U Benzodiazepines Scrn (Negative) ng/mL Urine Cocaine Scre en (Negative) ng/mL U Marijuana (THC) Screen (Negative) ng/mL Ethyl Alcohol (0-10) mg/dL 01/24/21 Range/Units 22:07 WBC (4.0-10.0) 10^3/ uL RBC (4.1-5.3) 10^6/u L Hgb (11.5-15.3) g/dL Hct (37.0-47.0) % MCV (81-99) fL MCH (28.0-34.0) pg MCHC (30.0-36.0) g/dL RDW (12.1-15.1) % Plt Count (130-400) 10^3/c mm MPV (7.4-10.4) fL Neut % (Auto) % Lymph % (Auto) % Treasure % (Auto) % Eos % (Auto) % Baso % (Auto) % Neut # (Auto) (1.8-7.7) 10^3/u L Lymph # (Auto) (0.8-4.8) 10^3/u L Treasure # (Auto) (0.2-0.9) 10^3/u L Eos # (Auto) (0.0-0.8) 10^3/u L Baso # (Auto) (0.0-0.1) 10^3/u L Nucleated RBC % (a uto) % Nucleated RBCs # /100WBC Sodium (136-145) mmol/L Potassium (3.5-5.1) mmol/L Chloride (98-107) mmol/L Carbon Dioxide (22-29) mmol/L Anion Gap (5-19) BUN (6-20) mg/dL Creatinine (0.5-0.9) mg/dL GFR Calculation (90-130) mL/min Glucose (65-115) mg/dL POC Glucose (70-110) mg/dL Calculated Osmolal ity (285-295) mOsm/k g Lactate (0.5-2.2) mmol/L Calcium (8.5-10.5) mg/dL Phosphorus (2.5-4.5) mg/dL Magnesium (1.7-2.3) mg/dL Total Bilirubin (0.15-1.2) mg/dL AST (0-32) U/L ALT (0-33) U/L Alkaline Phosphata se (35-105) IU/L Creatine Kinase (26-192) U/L Total Protein (6.6-8.7) g/dL Albumin (3.5-5.2) g/dL Globulin (1.3-4.6) g/dL TSH (0.27-4.20) uIU/ mL HCG, Qual (Negative) Urine Color (Yellow) Urine Appearance (CLEAR) Urine pH (5-7) Ur Specific Gravit y (1.005-1.030) Urine Protein (Negative) Urine Glucose (UA) (Normal) Urine Ketones (Negative) Urine Blood (Negative) Urine Nitrate (Negative) Urine Bilirubin (Negative) Urine Urobilinogen (Negative) mg/dL Ur Leukocyte Lisa ase (Negative) Salicylates (3-10) mg/dL Urine Opiates Scre en Negative (Negative) ng/mL Acetaminophen (10-30) ug/mL Ur Barbiturates Sc reen Negative (Negative) ng/mL Ur Phencyclidine S crn Negative (Negative) ng/mL Ur Amphetamines Sc reen Positive H (Negative) ng/mL U Benzodiazepines Scrn Negative (Negative) ng/mL Urine Cocaine Scre en Negative (Negative) ng/mL U Marijuana (THC) Screen Positive H (Negative) ng/mL Ethyl Alcohol (0-10) mg/dL Imaging Data^: CXR: Attestation: I personally reviewed and interpreted this imaging study as follows: My impression: No pneumothorax. No obvious lobar consolidation. EKG Data^: EKG 1: Attestation: I personally reviewed and interpreted this EKG as follows: EKG interpretation date: 01/24/21 Prior EKG tracings: not available for review Ischemic changes: non-specific ST-T wave changes Interpretation: Twelve-lead EKG shows a regular sinus rhythm at a rate of 77. MO interval 145. QRS duration 93. QTc 429. Regular axis. Mild nonspecific ST segment abnormalities Interpretation: Sinus rhythm. Critical Care Time Critical Care Time: Critical Care Time: Yes Total Critical Care Time: 35 Attestation: This case had a high probability of a clinically significant, sudden, or life threatening deterioration of this patient's condition which required my full and direct attention, intervention and personal management. Discharge Plan Discharge Patient Disposition: Home Clinical Impression: Seizures, Cannabis abuse, Amphetamine abuse, Alcohol abuse Condition: Stable Prescriptions: No Action Naprosyn 500 mg tablet 500 mg PO BID PRN (Reason: pain) Qty: 20 RF: 0 No Known Home Medications RF: 0 Discharge Orders: Discharge ED (Routine); Ordered 01/24/21 Ordered By: Destiny Corrigan Discharge Diet: Usual diet Discharge Activity: Resume usual activity Patient Instructions: Abuse of Alcohol (ED), Cannabis Abuse (ED), Methamphetamine Abuse (ED), Polysubstance Abuse (ED), Recurrent Seizures Adult (ED) Activity Restrictions/Additional Instructions: Thank you for visiting the emergency department. You were seen and evaluated for seizure-like activity. The exact cause of this is unclear though it is likely related to underlying seizure disorder as reported in history. Additionally a component of this could be related to substance abuse. We recommend that you stop abusing substances, failure to do so may lead to or worse. Please follow-up with your primary care provider and epileptologist/neurologist. Please establish with these physicians if you do not currently have one. Please seek substance abuse counseling. Please return to the emergency department for any reason that you are concerned about and feel needs emergency department evaluation. As an incidental finding the following was noted and requires follow-up on your CT scan: Thyroid: The right lobe of the thyroid gland appears enlarged, only partially included/evaluated on this exam. There could be one or more masses within the thyroid gland, measuring up to 2 cm in size, but this cannot conclusively the determined by this CT exam. Non emergent ultrasound recommended for further evaluation of possible thyroid masses/malignancy, ifnot already performed. Coding Level of Care Code ED Purchasing Department Clerk for [facility] Documented by User: Destiny Corrigan MD 01/25/21 00:04 HPI - Seizure General: Chief Complaint: Seizure Stated Complaint: Seizure, ETOH, Combative Time Seen by Provider: 01/24/21 20:47 PFSH ED PFSH: Medical History DVT (deep venous thrombosis) Fracture of left wrist Injury, self-inflicted Seizures Surgical History No significant past surgical history Family History Other Family history non-contributory Social History Smoking and tobacco status: current every day smoker Alcohol intake: current Housing: House Course Vital Signs: Vital signs: Vital Signs Pulse Rate 70 01/24/21 23:00 Respiratory Rate 14 01/24/21 23:00 Blood Pressure 148/103 01/24/21 23:00 Pulse Oximetry 100 01/24/21 23:00 MDM - Seizure MDM Narrative: Medical decision making narrative: Patient presents here after a seizure along with methamphetamine abuse. Patient is now awake alert able to ambulate. She is well-appearing here and is stable for discharge. She is to follow-up with PCP and return if worsening. Lab Data: Labs: Lab Results 01/24/21 01/24/21 01/24/21 Range/Units 21:00 21:00 21:00 WBC 5.8 (4.0-10.0) 10^3/ uL RBC 4.26 (4.1-5.3) 10^6/u L Hgb 13.2 (11.5-15.3) g/dL Hct 40.6 (37.0-47.0) % MCV 95.3 (81-99) fL MCH 31.0 (28.0-34.0) pg MCHC 32.5 (30.0-36.0) g/dL RDW 13.0 (12.1-15.1) % Plt Count 266 (130-400) 10^3/c mm MPV 9.3 (7.4-10.4) fL Neut % (Auto) 63.6 % Lymph % (Auto) 27.9 % Treasure % (Auto) 5.9 % Eos % (Auto) 1.4 % Baso % (Auto) 0.9 % Neut # (Auto) 3.70 (1.8-7.7) 10^3/u L Lymph # (Auto) 1.6 (0.8-4.8) 10^3/u L Treasure # (Auto) 0.3 (0.2-0.9) 10^3/u L Eos # (Auto) 0.1 (0.0-0.8) 10^3/u L Baso # (Auto) 0.1 (0.0-0.1) 10^3/u L Nucleated RBC % (a uto) 0 % Nucleated RBCs # 0.0 /100WBC Sodium 140 (136-145) mmol/L Potassium 4.0 (3.5-5.1) mmol/L Chloride 105 (98-107) mmol/L Carbon Dioxide 22 (22-29) mmol/L Anion Gap 17.0 (5-19) BUN 12 (6-20) mg/dL Creatinine 0.7 (0.5-0.9) mg/dL GFR Calculation 89.7 L (90-130) mL/min Glucose 97 (65-115) mg/dL POC Glucose (70-110) mg/dL Calculated Osmolal ity 290 (285-295) mOsm/k g Lactate 1.5 (0.5-2.2) mmol/L Calcium 8.5 (8.5-10.5) mg/dL Phosphorus 3.4 (2.5-4.5) mg/dL Magnesium 2.1 (1.7-2.3) mg/dL Total Bilirubin 0.2 (0.15-1.2) mg/dL AST 92 H (0-32) U/L ALT 102 H (0-33) U/L Alkaline Phosphata se 152 H (35-105) IU/L Creatine Kinase 45 (26-192) U/L Total Protein 6.6 (6.6-8.7) g/dL Albumin 4.0 (3.5-5.2) g/dL Globulin 2.6 (1.3-4.6) g/dL TSH 3.53 (0.27-4.20) uIU/ mL HCG, Qual (Negative) Urine Color (Yellow) Urine Appearance (CLEAR) Urine pH (5-7) Ur Specific Gravit y (1.005-1.030) Urine Protein (Negative) Urine Glucose (UA) (Normal) Urine Ketones (Negative) Urine Blood (Negative) Urine Nitrate (Negative) Urine Bilirubin (Negative) Urine Urobilinogen (Negative) mg/dL Ur Leukocyte Lisa ase (Negative) Salicylates < 0.3 L (3-10) mg/dL Urine Opiates Scre en (Negative) ng/mL Acetaminophen < 5.0 L (10-30) ug/mL Ur Barbiturates Sc reen (Negative) ng/mL Ur Phencyclidine S crn (Negative) ng/mL Ur Amphetamines Sc reen (Negative) ng/mL U Benzodiazepines Scrn (Negative) ng/mL Urine Cocaine Scre en (Negative) ng/mL U Marijuana (THC) Screen (Negative) ng/mL Ethyl Alcohol 98 H (0-10) mg/dL 01/24/21 01/24/21 01/24/21 Range/Units 21:00 21:52 22:07 WBC (4.0-10.0) 10^3/ uL RBC (4.1-5.3) 10^6/u L Hgb (11.5-15.3) g/dL Hct (37.0-47.0) % MCV (81-99) fL MCH (28.0-34.0) pg MCHC (30.0-36.0) g/dL RDW (12.1-15.1) % Plt Count (130-400) 10^3/c mm MPV (7.4-10.4) fL Neut % (Auto) % Lymph % (Auto) % Treasure % (Auto) % Eos % (Auto) % Baso % (Auto) % Neut # (Auto) (1.8-7.7) 10^3/u L Lymph # (Auto) (0.8-4.8) 10^3/u L Treasure # (Auto) (0.2-0.9) 10^3/u L Eos # (Auto) (0.0-0.8) 10^3/u L Baso # (Auto) (0.0-0.1) 10^3/u L Nucleated RBC % (a uto) % Nucleated RBCs # /100WBC Sodium (136-145) mmol/L Potassium (3.5-5.1) mmol/L Chloride (98-107) mmol/L Carbon Dioxide (22-29) mmol/L Anion Gap (5-19) BUN (6-20) mg/dL Creatinine (0.5-0.9) mg/dL GFR Calculation (90-130) mL/min Glucose (65-115) mg/dL POC Glucose 106 (70-110) mg/dL Calculated Osmolal ity (285-295) mOsm/k g Lactate (0.5-2.2) mmol/L Calcium (8.5-10.5) mg/dL Phosphorus (2.5-4.5) mg/dL Magnesium (1.7-2.3) mg/dL Total Bilirubin (0.15-1.2) mg/dL AST (0-32) U/L ALT (0-33) U/L Alkaline Phosphata se (35-105) IU/L Creatine Kinase (26-192) U/L Total Protein (6.6-8.7) g/dL Albumin (3.5-5.2) g/dL Globulin (1.3-4.6) g/dL TSH (0.27-4.20) uIU/ mL HCG, Qual Negative (Negative) Urine Color Yellow (Yellow) Urine Appearance Clear (CLEAR) Urine pH 6 (5-7) Ur Specific Gravit y 1.020 (1.005-1.030) Urine Protein Neg (Negative) Urine Glucose (UA) Norm (Normal) Urine Ketones Negative (Negative) Urine Blood Neg (Negative) Urine Nitrate Negative (Negative) Urine Bilirubin Neg (Negative) Urine Urobilinogen Norm (Negative) mg/dL Ur Leukocyte Lisa ase Negative (Negative) Salicylates (3-10) mg/dL Urine Opiates Scre en (Negative) ng/mL Acetaminophen (10-30) ug/mL Ur Barbiturates Sc reen (Negative) ng/mL Ur Phencyclidine S crn (Negative) ng/mL Ur Amphetamines Sc reen (Negative) ng/mL U Benzodiazepines Scrn (Negative) ng/mL Urine Cocaine Scre en (Negative) ng/mL U Marijuana (THC) Screen (Negative) ng/mL Ethyl Alcohol (0-10) mg/dL 01/24/21 Range/Units 22:07 WBC (4.0-10.0) 10^3/ uL RBC (4.1-5.3) 10^6/u L Hgb (11.5-15.3) g/dL Hct (37.0-47.0) % MCV (81-99) fL MCH (28.0-34.0) pg MCHC (30.0-36.0) g/dL RDW (12.1-15.1) % Plt Count (130-400) 10^3/c mm MPV (7.4-10.4) fL Neut % (Auto) % Lymph % (Auto) % Treasure % (Auto) % Eos % (Auto) % Baso % (Auto) % Neut # (Auto) (1.8-7.7) 10^3/u L Lymph # (Auto) (0.8-4.8) 10^3/u L Treasure # (Auto) (0.2-0.9) 10^3/u L Eos # (Auto) (0.0-0.8) 10^3/u L Baso # (Auto) (0.0-0.1) 10^3/u L Nucleated RBC % (a uto) % Nucleated RBCs # /100WBC Sodium (136-145) mmol/L Potassium (3.5-5.1) mmol/L Chloride (98-107) mmol/L Carbon Dioxide (22-29) mmol/L Anion Gap (5-19) BUN (6-20) mg/dL Creatinine (0.5-0.9) mg/dL GFR Calculation (90-130) mL/min Glucose (65-115) mg/dL POC Glucose (70-110) mg/dL Calculated Osmolal ity (285-295) mOsm/k g Lactate (0.5-2.2) mmol/L Calcium (8.5-10.5) mg/dL Phosphorus (2.5-4.5) mg/dL Magnesium (1.7-2.3) mg/dL Total Bilirubin (0.15-1.2) mg/dL AST (0-32) U/L ALT (0-33) U/L Alkaline Phosphata se (35-105) IU/L Creatine Kinase (26-192) U/L Total Protein (6.6-8.7) g/dL Albumin (3.5-5.2) g/dL Globulin (1.3-4.6) g/dL TSH (0.27-4.20) uIU/ mL HCG, Qual (Negative) Urine Color (Yellow) Urine Appearance (CLEAR) Urine pH (5-7) Ur Specific Gravit y (1.005-1.030) Urine Protein (Negative) Urine Glucose (UA) (Normal) Urine Ketones (Negative) Urine Blood (Negative) Urine Nitrate (Negative) Urine Bilirubin (Negative) Urine Urobilinogen (Negative) mg/dL Ur Leukocyte Lisa ase (Negative) Salicylates (3-10) mg/dL Urine Opiates Scre en Negative (Negative) ng/mL Acetaminophen (10-30) ug/mL Ur Barbiturates Sc reen Negative (Negative) ng/mL Ur Phencyclidine S crn Negative (Negative) ng/mL Ur Amphetamines Sc reen Positive H (Negative) ng/mL U Benzodiazepines Scrn Negative (Negative) ng/mL Urine Cocaine Scre en Negative (Negative) ng/mL U Marijuana (THC) Screen Positive H (Negative) ng/mL Ethyl Alcohol (0-10) mg/dL Discharge Plan Discharge Patient Disposition: Home Clinical Impression: Seizures, Cannabis abuse, Amphetamine abuse, Alcohol abuse Condition: Stable Prescriptions: No Action Naprosyn 500 mg tablet 500 mg PO BID PRN (Reason: pain) Qty: 20 RF: 0 No Known Home Medications RF: 0 Discharge Orders: Discharge ED (Routine); Ordered 01/24/21 Ordered By: Destiny Corrigan Discharge Diet: Usual diet Discharge Activity: Resume usual activity Patient Instructions: Abuse of Alcohol (ED), Cannabis Abuse (ED), Methamphetamine Abuse (ED), Polysubstance Abuse (ED), Recurrent Seizures Adult (ED) Activity Restrictions/Additional Instructions: Thank you for visiting the emergency department. You were seen and evaluated for seizure-like activity. The exact cause of this is unclear though it is likely related to underlying seizure disorder as reported in history. Additionally a component of this could be related to substance abuse. We recommend that you stop abusing substances, failure to do so may lead to or worse. Please follow-up with your primary care provider and epileptologist/neurologist. Please establish with these physicians if you do not currently have one. Please seek substance abuse counseling. Please return to the emergency department for any reason that you are concerned about and feel needs emergency department evaluation. As an incidental finding the following was noted and requires follow-up on your CT scan: Thyroid: The right lobe of the thyroid gland appears enlarged, only partially included/evaluated on this exam. There could be one or more masses within the thyroid gland, measuring up to 2 cm in size, but this cannot conclusively the determined by this CT exam. Non emergent ultrasound recommended for further evaluation of possible thyroid masses/malignancy, ifnot already performed. Coding Level of Care Code ED Purchasing Department Clerk for Giovanni Morgan
--- NOTE | 2021-01-24 20:49 | ECG_ITS ---
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 Measurements Intervals [place] Rate: 77 P: 28 MI: 145 QRS: 44 QRSD: 93 T: 54 QT: 398 QTc: 450 Interpretive Statements SINUS RHYTHM NONSPECIFIC T-WAVE ABNORMALITY Compared to ECG 08/07/2020 02:33:04 Sinus bradycardia no longer present T-wave abnormality still present Electronically Signed On 01-25-2021 17:28:47 CDT by Nigel Abreu M.D. [id number]
--- NOTE | 2021-01-24 20:57 | XRR_ITS ---
PROCEDURE INFORMATION: Exam: XR Chest Exam date and time: 01/24/2021 8:57 PM Age: 45 years old Clinical indication: Other: AMS TECHNIQUE: Imaging protocol: XR of the chest. Views: 1 view. COMPARISON: CR XR chest 1V portable [id number] 08/07/2020 12:34 AM FINDINGS: Lungs: Unremarkable. No consolidation. Pleural spaces: Unremarkable. No pleural effusion. No pneumothorax. Heart/Mediastinum: Unremarkable. No cardiomegaly. Bones/joints: Unremarkable. XR/XR chest 1V portable [id number] IMPRESSION: No acute findings.
[2021-01-24 21:01] VITALS: BP 158/101; PULSE 79; RESP 15; O2SAT 100
[2021-01-24 21:15] VITALS: O2SAT 100
[2021-01-24 21:37] LABS: Basophils # 0.1 10^3/uL (0.0-0.1); Basophils % 0.9 %; Eosinophils # 0.1 10^3/uL (0.0-0.8); Eosinophils % 1.4 %; Hematocrit 40.6 % (37.0-47.0); Hemoglobin 13.2 g/dL (11.5-15.3); Lymphocytes # 1.6 10^3/uL (0.8-4.8); Lymphocytes % 27.9 %; Mean Corpuscular HGB Conc 32.5 g/dL (30.0-36.0); Mean Corpuscular Volume 95.3 fL (81-99); Mean Platelet Volume 9.3 fL (7.4-10.4); Monocytes # 0.3 10^3/uL (0.2-0.9); Monocytes % 5.9 %; Neutrophils % 63.6 %; Nucleated Red Blood Cells % 0 %; Platelet Count 266 10^3/cmm (130-400); Red Blood Count 4.26 10^6/uL (4.1-5.3); White Blood Count 5.8 10^3/uL (4.0-10.0)
[2021-01-24 21:54] LABS: Glucose Point of Care 106 mg/dL (70-110)
[2021-01-24 22:00] VITALS: BP 140/97; PULSE 71; RESP 16; O2SAT 100
[2021-01-24 22:02] LABS: Lactate (Lactic Acid level) 1.5 mmol/L (0.5-2.2)
[2021-01-24 22:04] LABS: HCG, Serum Qual Negative (Negative)
[2021-01-24 22:10] LABS: Alanine Aminotransferase 102 U/L (0-33); Alcohol Level 98 mg/dL (0-10); Alkaline Phosphatase 152 IU/L (35-105); Aspartate Amino Transferase 92 U/L (0-32); Blood Urea Nitrogen 12 mg/dL (6-20); Calcium 8.5 mg/dL (8.5-10.5); Carbon Dioxide 22 mmol/L (22-29); Chloride 105 mmol/L (98-107); Creatine Phosphokinase 45 U/L (26-192); Globulin 2.6 g/dL (1.3-4.6); Glomerular Filtration Rate 89.7 mL/min (90-130); Glucose 97 mg/dL (65-115); Magnesium 2.1 mg/dL (1.7-2.3); Osmolality Calculated 290 mOsm/kg (285-295); Phosphorus 3.4 mg/dL (2.5-4.5); Sodium 140 mmol/L (136-145); Thyroid Stimulating Hormone 3.53 uIU/mL (0.27-4.20); Total Bilirubin 0.2 mg/dL (0.15-1.2); Total Protein 6.6 g/dL (6.6-8.7)
[2021-01-24 22:21] LABS: Acetaminophen < 5.0 ug/mL (10-30); Salicylate < 0.3 mg/dL (3-10)
[2021-01-24 22:32] LABS: Add Urine Microscopic? NO; Charge for UA Resulting for Rev
[2021-01-24 22:34] LABS: Bilirubin Urine Neg (Negative); Blood Urine Neg (Negative); Glucose Urine UA Norm (Normal); Ketones Urine Negative (Negative); Leukocyte Esterase Urine Negative (Negative); Nitrate Urine Negative (Negative); Protein Urine Neg (Negative); Urine Appearance Clear (CLEAR); Urine Color Yellow (Yellow); Urobilinogen Urine Norm (Negative); pH Urine 6 (5-7)
[2021-01-24 22:43] LABS: Amphetamines Screen Urine Positive (Negative); Barbiturates Screen Urine Negative (Negative); Benzodiazepines Screen Urine Negative (Negative); Cocaine Screen Urine Negative (Negative); Opiate Screen Urine Negative (Negative); PCP Screen Urine Negative (Negative); THC Screen Urine Positive (Negative)
[2021-01-24 23:00] VITALS: BP 148/103; PULSE 70; RESP 14; O2SAT 100
--- NOTE | 2021-01-24 23:46 | PC.NURSE ---
able to ambulate without difficulty
[2021-01-24] MEDS: cyanocobalamin 1,000 mcg/mL SDV 1000 MCG IM (23:47)
== END 2021-01-24 23:49 | disposition home or self-care (01) ==
PROVIDERS: Emergency Medicine; Emergency Provider Emergency Medicine
DX: G40.89 Other seizures (principal); F12.10 Cannabis abuse, uncomplicated; F15.10 Other stimulant abuse, uncomplicated; F10.10 Alcohol abuse, uncomplicated; F17.210 Nicotine dependence, cigarettes, uncomplicated
CPT/HCPCS: 36416; 51701; 70450; 71045; 72125; 80053; 80306; 80307; 81003; 82550; 82962; 83605; 83735; 84100; 84443; 84703; 85025; 93005; 96372; 96374; 99284; J3411; J3420

== ENCOUNTER 2021-03-30 19:27 | Emergency (ER) | payer SELFPAY ==
[2021-03-30 19:38] VITALS: BP 121/78; PULSE 87; RESP 16; TEMP 37.1; O2SAT 96
--- NOTE | 2021-03-30 21:32 | W.ED.WOUNDLC ---
HPI - Wound/Laceration General: Chief Complaint: Wound/Laceration Time Seen by Provider: 03/30/21 21:28 Source: patient Mode of arrival: ambulatory Limitations: no limitations History of Present Illness: HPI narrative: 45-year-old female states she has multiple abscesses on her lower legs. She has had three abscesses that are already open and draining. States she started have increasing erythema along with pain. States pain is sharp nature rates it a 6 out of 10. Denies any fever. Denies any worsening improving factors. Associated symptoms: Denies chills, fever(s), nausea or vomiting Review of Systems Const: Denies: fever(s), chills, body aches or change in appetite Eyes: Denies: blurry vision or eye discomfort ENMT: Denies: throat pain or dental pain Card: Denies: chest pain Resp: Denies: dyspnea GI: Denies: abdominal pain, nausea, vomiting or diarrhea : Denies: dysuria Musc: Denies: neck pain or back pain Skin/Breast: Reports: erythema Neuro: Denies: headache(s) Psych: Denies: depression Lewis/Lymph: Denies: easy bruising All/Imm: Denies: urticaria PFSH ED PFSH: Medical History DVT (deep venous thrombosis) Fracture of left wrist Injury, self-inflicted Seizures Surgical History No significant past surgical history Family History Other Family history non-contributory Social History Smoking and tobacco status: current every day smoker Alcohol intake: current Housing: House Physical Exam Const: COMMON NORMALS: no acute distress, patient oriented x3 and healthy appearing HENMT: COMMON NORMALS: normocephalic and atraumatic HEAD & SCALP: normocephalic and atraumatic Eye: COMMON NORMALS: Equal, round and reactive pupils present and EOMs intact bilaterally PUPIL: Yes Equal, round and reactive pupils present Neck/C-Spine: COMMON NORMALS: full ROM and supple Chest: COMMONS NORMALS: normal inspection of the chest and normal palpation of entire chest wall Resp: COMMON NORMALS: normal respiratory effort, No retractions, No use of accessory muscles and clear to auscultation bilaterally AUSCULTATION: clear to auscultation bilaterally Cardio: COMMON NORMALS: regular rate, regular rhythm and No murmurs present (Cardio) RATE: regular rate RHYTHM: regular rhythm GI: COMMON NORMALS: Normal to inspection, nondistended, normoactive bowel sounds present, Soft to palpation, non-tender and no masses PALPATION: Yes Soft to palpation Extremity: COMMON NORMALS: full ROM NARRATIVE EXTREMITY EXAM: Abscess to left lower leg and left upper thigh both her open and draining with roughly 2 cm of cellulitis Neuro: COMMON NORMALS: patient oriented x3, moves all extremities and no focal motor deficits Psych: COMMON NORMALS: mental status grossly normal, Normal thought process present and cooperative THOUGHT PROCESS: Normal thought process present Skin: COMMON NORMALS: no rashes or lesions noted and no wounds GENERAL SKIN EXAM: no rashes or lesions noted Course Vital Signs: Vital signs: Vital Signs Temperature 98.7 F 03/30/21 19:38 Pulse Rate 89 03/30/21 21:40 Respiratory Rate 19 H 03/30/21 21:40 Blood Pressure 125/80 03/30/21 21:40 Pulse Oximetry 96 03/30/21 21:40 MDM - Wound/Laceration MDM Narrative: Medical decision making narrative: Patient presents with abscess is already open and draining we will place her on pain meds and antibiotics she is to follow-up PCP and return if worsening. Discharge Plan Discharge Patient Disposition: Home Clinical Impression: Abscess Condition: Stable Prescriptions: New hydrocodone-acetaminophen 5-325 mg tablet 1 tab PO Q6H PRN (Reason: pain) Qty: 14 RF: 0 Bactrim DS 800-160 mg tablet 1 tab PO BID 10 Days Qty: 20 RF: 0 cephalexin 500 mg capsule 500 mg PO TID 7 Days Qty: 21 RF: 0 No Action Naprosyn 500 mg tablet 500 mg PO BID PRN (Reason: pain) Qty: 20 RF: 0 Discharge Orders: Discharge ED (Routine); Ordered 03/30/21 Ordered By: Destiny Corrigan Discharge Diet: Advance as tolerated Discharge Activity: Resume usual activity Patient Instructions: Abscess (ED), Opioid Safety Coding Level of Care Code ED Tissue Coordinator for Chg Eddie
[2021-03-30] MEDS: sulfamethoxazole-trimeth DS 160-800 mg Tablet 1 TAB PO (21:39)
[2021-03-30 21:40] VITALS: BP 125/80; PULSE 89; RESP 19; O2SAT 96
[2021-03-30] MEDS: HYDROcodone-acetaminophen 5-325 mg Tablet 1 TAB PO (21:50)
[2021-03-30 21:51] VITALS: BP 127/82; PULSE 82; RESP 20; O2SAT 98
== END 2021-03-30 21:51 | disposition home or self-care (01) ==
PROVIDERS: Emergency Provider Emergency Medicine
DX: L02.416 Cutaneous abscess of left lower limb (principal); F17.210 Nicotine dependence, cigarettes, uncomplicated
CPT/HCPCS: 99283

== ENCOUNTER 2021-10-03 10:05 | Emergency (ER) | payer SELFPAY ==
[2021-10-03 10:07] VITALS: BP 134/93; PULSE 89; RESP 16; TEMP 36.5; O2SAT 96; BMI 23.8
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
== END 2021-10-03 12:36 | disposition home or self-care (01) ==
PROVIDERS: Emergency Provider Nurse Practitioner Family
DX: K04.7 Periapical abscess without sinus (principal); R51.9 Headache, unspecified; Y04.8XXA Assault by other bodily force, initial encounter; Z79.891 Long term (current) use of opiate analgesic
CPT/HCPCS: 70486; 99282

== ENCOUNTER 2022-08-26 23:15 | Emergency (ER) | payer MEDICAID, SELFPAY ==
[2022-08-26 23:15] VITALS: BP 122/92; PULSE 87; RESP 18; TEMP 36.7; O2SAT 93; BMI 27.6
--- NOTE | 2022-08-26 23:16 | CTR_ITS ---
PROCEDURE INFORMATION: Exam: CT Head Without Contrast Exam date and time: 08/26/2022 11:37 PM Age: 47 years old Clinical indication: Other: Seizure TECHNIQUE: Imaging protocol: Computed tomography of the head without contrast. Radiation optimization: All CT scans at this facility use at least one of these dose optimization techniques: automated exposure control; mA and/or kV adjustment per patient size (includes targeted exams where dose is matched to clinical indication); or iterative reconstruction. REPORTING DATA: Count of CT and Cardiac NM exams in prior 12 months: This patient has received [address] and 0 known cardiac nuclear medicine studies in the 12 months prior to the current study. COMPARISON: CT head wo con* [id number] 01/24/2021 9:29 PM RADIATION DOSE METRICS: Total DLP (mGy-cm): 1147.94 FINDINGS: Brain: Normal. No hemorrhage. Unremarkable white matter. No mass effect. Cerebral ventricles: No ventriculomegaly. Paranasal sinuses: Visualized sinuses are unremarkable. No fluid levels. Mastoid air cells: Visualized mastoid air cells are well aerated. Bones/joints: Unremarkable. No acute fracture. Soft tissues: Unremarkable. CT/CT head wo con* [id number] IMPRESSION: No acute intracranial abnormality.
--- NOTE | 2022-08-26 23:18 | W.ED.SEIZURE ---
HPI - Seizure General: Chief Complaint: Seizure Stated Complaint: SEIZURE Time Seen by Provider: 08/26/22 23:15 Source: patient and EMS Mode of arrival: EMS Limitations: no limitations History of Present Illness: HPI Narrative: 47-year-old female with a history of drug and alcohol abuse along with seizures she had 2 seizures today one in route by EMS she has received Versed she is now awake and alert and able answer my questions she is supposed to take Depakote but she has not been taking it she said she has not taken it in quite some time she did hit her head when she seized denies any pain currently. No fever no vomiting Seizure History: Yes (hx seizure worsened by etoh) Associated symptoms: Deny chest pain, chills or fever(s) Review of Systems Const: Denies: fever(s), chills, body aches or change in appetite Eyes: Denies: blurry vision or eye discomfort ENMT: Denies: throat pain or dental pain Card: Denies: chest pain Resp: Denies: dyspnea GI: Denies: abdominal pain, nausea, vomiting or diarrhea : Denies: dysuria Musc: Denies: neck pain or back pain Skin/Breast: Denies: rash Neuro: Reports: seizure-like activity Psych: Denies: depression Lewis/Lymph: Denies: easy bruising All/Imm: Denies: urticaria PFSH ED PFSH: Medical History DVT (deep venous thrombosis) Fracture of left wrist Injury, self-inflicted Seizures Surgical History No significant past surgical history Family History Other Family history non-contributory Social History Smoking and tobacco status: current every day smoker Alcohol intake: current Housing: House Physical Exam Const: COMMON NORMALS: no acute distress, patient oriented x3 and healthy appearing HENMT: COMMON NORMALS: normocephalic and atraumatic HEAD & SCALP: normocephalic and atraumatic Eye: COMMON NORMALS: Equal, round and reactive pupils present and EOMs intact bilaterally PUPIL: Yes Equal, round and reactive pupils present Neck/C-Spine: COMMON NORMALS: full ROM and supple Chest: COMMONS NORMALS: normal inspection of the chest and normal palpation of entire chest wall Resp: COMMON NORMALS: normal respiratory effort, No retractions, No use of accessory muscles and clear to auscultation bilaterally AUSCULTATION: clear to auscultation bilaterally Cardio: COMMON NORMALS: regular rate, regular rhythm and No murmurs present (Cardio) RATE: regular rate RHYTHM: regular rhythm GI: COMMON NORMALS: Normal to inspection, nondistended, normoactive bowel sounds present, Soft to palpation, non-tender and no masses PALPATION: Yes Soft to palpation Extremity: COMMON NORMALS: normal to inspection and full ROM Neuro: COMMON NORMALS: patient oriented x3, moves all extremities and no focal motor deficits Psych: COMMON NORMALS: mental status grossly normal, Normal thought process present and cooperative THOUGHT PROCESS: Normal thought process present Skin: COMMON NORMALS: no rashes or lesions noted and no wounds GENERAL SKIN EXAM: no rashes or lesions noted Course Vital Signs: Vital signs: Vital Signs Temperature 98.1 F 08/26/22 23:15 Pulse Rate 66 08/27/22 01:55 Respiratory Rate 18 08/27/22 01:36 Blood Pressure 117/81 08/27/22 01:55 Pulse Oximetry 96 08/27/22 01:55 Oxygen Delivery Me thod 08/26/22 23:15 MDM - Seizure MDM Narrative Medical decision making narrative: Patient presents after 2 seizures at home she has a history of seizures she is noncompliant on her meds we will prescribe her Keppra she has had no seizures here blood work is normal she is stable for discharge and she is return if worsening. Lab Data 08/26/22 23:27 08/26/22 23:27 Labs: Radiology Impressions Head CT 08/26/22 23:16 IMPRESSION: No acute intracranial abnormality. Laboratory Results WBC 6.8 10^3/uL (4.0-10.0) 08/27/22 00:17 Corrected WBC Cancelled 08/26/22 23:27 RBC 3.98 10^6/uL (4.1-5.3) L 08/27/22 00:17 Hgb 12.1 g/dL (11.5-15.3) 08/27/22 00:17 Hct 36.6 % (37.0-47.0) L 08/27/22 00:17 MCV 92.0 fl (81-99) 08/27/22 00:17 MCH 30.4 pg (28.0-34.0) 08/27/22 00:17 MCHC 33.1 g/dL (30.0-36.0) 08/27/22 00:17 RDW 13.0 % (12.1-15.1) 08/27/22 00:17 Plt Count 232 10^3/cmm (130-400) 08/27/22 00:17 MPV 9.2 fL (7.4-10.4) 08/27/22 00:17 Gran % Cancelled 08/26/22 23:27 Neut % (Auto) 49.0 % 08/27/22 00:17 Lymph % (Auto) 41.4 % 08/27/22 00:17 [place] % (Auto) 6.2 % 08/27/22 00:17 Eos % (Auto) 2.4 % 08/27/22 00:17 Baso % (Auto) 0.7 % 08/27/22 00:17 Neut # (Auto) 3.32 10^3/uL (1.8-7.7) 08/27/22 00:17 Lymph # (Auto) 2.8 10^3/uL (0.8-4.8) 08/27/22 00:17 [place] # (Auto) 0.4 10^3/uL (0.2-0.9) 08/27/22 00:17 Eos # (Auto) 0.2 10^3/uL (0.0-0.8) 08/27/22 00:17 Baso # (Auto) 0.1 10^3/uL (0.0-0.1) 08/27/22 00:17 Absolute Gran (auto) Cancelled 08/26/22 23:27 Nucleated RBC % (auto) 0 % 08/27/22 00:17 Nucleated RBCs # 0.0 /100WBC 08/27/22 00:17 Sodium 140 mmol/L (136-145) 08/26/22 23:27 Potassium 3.5 mmol/L (3.5-5.1) 08/26/22 23:27 Chloride 104 mmol/L (98-107) 08/26/22 23:27 Carbon Dioxide 22 mmol/L (22-29) 08/26/22 23:27 Anion Gap 17.5 (5-19) 08/26/22 23:27 BUN 20 mg/dL (6-20) 08/26/22 23:27 Creatinine 0.9 mg/dL (0.5-0.9) 08/26/22 23:27 GFR Calculation 66.5 mL/min (90-130) L 08/26/22 23: Glucose 107 mg/dL (65-115) 08/26/22 23:27 Calculated Osmolality 293 mOsm/kg (285-295) 08/26/22 23: Calcium 8.7 mg/dL (8.5-10.5) 08/26/22 23: Total Bilirubin 0.2 mg/dL (0.15-1.2) 08/26/22 23:27 AST 32 U/L (0-32) 08/26/22 23:27 ALT 36 U/L (0-33) H 08/26/22 23:27 Alkaline Phosphatase 119 U/L (35-105) H 08/26/22 23:27 Total Protein 6.6 g/dL (6.6-8.7) 08/26/22 23: Albumin 3.6 g/dL (3.5-5.2) 08/26/22 23:27 Globulin 3.0 g/dL (1.3-4.6) 08/26/22 23:27 Salicylates < 0.3 mg/dL (3-10) L 08/26/22 23:27 Acetaminophen < 5.0 ug/mL (10-30) L 08/26/22 23:27 Valproic Acid 2.8 ug/mL (50-100) L 08/26/22 23:27 Ethyl Alcohol 177 mg/dL (0-10) H 08/26/22 23:27 EKG Data EKG 1: Attestation: I personally reviewed and interpreted this EKG as follows: EKG interpretation date: 08/26/22 EKG interpretation time: 23:54 Interpretation: nsr hr [address] or t wave abnormalities qrs 92 qtc 423 Discharge Plan Discharge Patient Disposition: Home Clinical Impression: Seizure, Alcohol intoxication Condition: Stable Prescriptions: New Keppra 500 mg tablet 500 mg PO BID Qty: 60 0RF No Action Naprosyn 500 mg tablet 500 mg PO BID PRN (Reason: pain) Qty: 20 0RF hydrocodone-acetaminophen 5-325 mg tablet 1 tab PO Q6H PRN (Reason: pain) Qty: 14 0RF Discharge Orders: Discharge ED (Routine); Ordered 08/27/22 Ordered By: Destiny Corrigan Referrals: Rima Shepard MD [Physician] - 1-3 days Discharge Diet: Advance as tolerated Discharge Activity: Resume usual activity Patient Instructions: Alcohol Intoxication (ED), Recurrent Seizures in Adults (ED) Coding Level of Care Code ED Supervisor Body Assembly for Giovanni Morgan
--- NOTE | 2022-08-26 23:54 | ECG_ITS ---
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 Measurements Intervals [place] Rate: 77 P: 38 AK: 152 QRS: 42 QRSD: 92 T: 45 QT: 392 QTc: 444 Interpretive Statements SINUS RHYTHM NONSPECIFIC T-WAVE ABNORMALITY Compared to ECG 01/24/2021 20:57:10 No significant changes Electronically Signed On 08-28-2022 19:35:56 CDT by Miguel Hernández M.D. [id number]
[2022-08-27 00:03] LABS: Alanine Aminotransferase 36 U/L (0-33); Albumin Level 3.6 g/dL (3.5-5.2); Alcohol Level 177 mg/dL (0-10); Alkaline Phosphatase 119 U/L (35-105); Anion Gap 17.5 (5-19); Aspartate Amino Transferase 32 U/L (0-32); Blood Urea Nitrogen 20 mg/dL (6-20); Calcium 8.7 mg/dL (8.5-10.5); Carbon Dioxide 22 mmol/L (22-29); Chloride 104 mmol/L (98-107); Glomerular Filtration Rate 66.5 mL/min (90-130); Glucose 107 mg/dL (65-115); Osmolality Calculated 293 mOsm/kg (285-295); Potassium 3.5 mmol/L (3.5-5.1); Sodium 140 mmol/L (136-145); Total Bilirubin 0.2 mg/dL (0.15-1.2); Total Protein 6.6 g/dL (6.6-8.7)
[2022-08-27 00:04] LABS: Valproic Acid Level 2.8 ug/mL (50-100)
[2022-08-27 00:07] LABS: Acetaminophen < 5.0 ug/mL (10-30); Salicylate < 0.3 mg/dL (3-10)
[2022-08-27 00:38] VITALS: PULSE 75; RESP 20; O2SAT 92
[2022-08-27 00:43] LABS: Basophils # 0.1 10^3/uL (0.0-0.1); Basophils % 0.7 %; Eosinophils # 0.2 10^3/uL (0.0-0.8); Eosinophils % 2.4 %; Hematocrit 36.6 % (37.0-47.0); Hemoglobin 12.1 g/dL (11.5-15.3); Lymphocytes # 2.8 10^3/uL (0.8-4.8); Lymphocytes % 41.4 %; Mean Corpuscular HGB Conc 33.1 g/dL (30.0-36.0); Mean Corpuscular Hemoglobin 30.4 pg (28.0-34.0); Mean Platelet Volume 9.2 fL (7.4-10.4); Monocytes # 0.4 10^3/uL (0.2-0.9); Monocytes % 6.2 %; Neutrophils # 3.32 10^3/uL (1.8-7.7); Nucleated Red Blood Cells % 0 %; Platelet Count 232 10^3/cmm (130-400); Red Blood Count 3.98 10^6/uL (4.1-5.3); White Blood Count 6.8 10^3/uL (4.0-10.0)
[2022-08-27 01:36] VITALS: PULSE 96; RESP 18; O2SAT 98
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
[2022-08-27 01:55] VITALS: BP 117/81; PULSE 66; O2SAT 96
--- NOTE | 2022-08-30 14:54 | DCPLANNER ---
08.27.22 - patient was called due to no primary care physician - voicemail was left 08.28.22 - patient was called due to no primary care physician - voicemail was left
== END 2022-08-27 02:06 | disposition home or self-care (01) ==
PROVIDERS: Emergency Provider Emergency Medicine
DX: G40.909 Epilepsy, unspecified, not intractable, without status epilepticus (principal); F10.129 Alcohol abuse with intoxication, unspecified; Y90.6 Blood alcohol level of 120-199 mg/100 ml; F17.200 Nicotine dependence, unspecified, uncomplicated; Z86.718 Personal history of other venous thrombosis and embolism
CPT/HCPCS: 70450; 80053; 80164; 80307; 85025; 93005; 96365; 99285; J1953

== ENCOUNTER 2023-01-24 15:54 | Emergency (ER) | payer MEDICAID, SELFPAY ==
[2023-01-24 16:02] VITALS: BP 131/68; PULSE 84; RESP 20; TEMP 36.5; O2SAT 100; BMI 25.0
--- NOTE | 2023-01-24 16:40 | PC.NURSE ---
PT INFORMED OF NEED FOR IV AND IV MEDICATIONS. PT REFUSED IV AND STATED SHE WOULD LIKE TO LEAVE. PHYSICIAN INFORMED. PHYSICIAN DISCUSSED PLAN OF CARE WITH PT. PT VERBALIZED THAT SHE WOULD LIKE TO LEAVE. PT SIGNED AMA FORM. PT ALERT TO SELF , PLACE AND YEAR.
[2023-01-24 17:27] LABS: Basophils % 0.4 %; Eosinophils % 0.3 %; Hematocrit 39.2 % (37.0-47.0); Hemoglobin 13.2 g/dL (11.5-15.3); Lymphocytes # 1.1 10^3/uL (0.8-4.8); Lymphocytes % 10.4 %; Mean Corpuscular HGB Conc 33.7 g/dL (30.0-36.0); Mean Corpuscular Hemoglobin 32.5 pg (28.0-34.0); Mean Corpuscular Volume 96.6 fl (81-99); Mean Platelet Volume 10.2 fL (7.4-10.4); Monocytes % 9.3 %; Neutrophils % 79.2 %; Nucleated Red Blood Cells % 0 %; Platelet Count 208 10^3/cmm (130-400); Red Blood Count 4.06 10^6/uL (4.1-5.3); Red Cell Distribution Width 12.5 % (12.1-15.1)
[2023-01-24 17:49] LABS: Anion Gap 16.7 (5-19); Blood Urea Nitrogen 14 mg/dL (6-20); Calcium 9.3 mg/dL (8.5-10.5); Carbon Dioxide 26 mmol/L (22-29); Chloride 98 mmol/L (98-107); Creatinine Clr Calc Pharmacy 118.1557; Glomerular Filtration Rate 106.3 mL/min (90-130); Glucose 97 mg/dL (65-115); Osmolality Calculated 284 mOsm/kg (285-295); Potassium 3.7 mmol/L (3.5-5.1); Sodium 137 mmol/L (136-145)
== END 2023-01-24 16:42 | disposition left against medical advice (07) ==
PROVIDERS: Emergency Provider Emergency Medicine
DX: Z53.21 Procedure and treatment not carried out due to patient leaving prior to being seen by health care provider (principal)
CPT/HCPCS: 80048; 85025; 99283

== ENCOUNTER 2023-06-13 00:54 | Emergency (ER) | payer MEDICAID, SELFPAY ==
[2023-06-13] VITALS (13 sets, daily range): BP systolic 80–171; BP diastolic 45–126; PULSE 67–119; RESP 10–24; O2SAT 13–100
[2023-06-13] MEDS: haloperidol inj 5 mg/mL INJ 1 mL (01:05)
--- NOTE | 2023-06-13 01:09 | ECG_ITS ---
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 Measurements Intervals [place] Rate: 85 P: 65 VA: 140 QRS: 74 QRSD: 93 T: 71 QT: 409 QTc: 489 Interpretive Statements SINUS RHYTHM Compared to ECG 08/26/2022 23:54:04 T-wave abnormality no longer present Electronically Signed On 06-14-2023 0:30:07 SOCIOLOGY TEACHER by Miguel Hernández M.D. [id number]
--- NOTE | 2023-06-13 01:09 | XRR_ITS ---
PROCEDURE INFORMATION: Exam: XR Chest Exam date and time: 06/13/2023 1:27 AM Age: 47 years old Clinical indication: Patient HX: EMS arrival for seizure activity. ; Additional info: AMS TECHNIQUE: Imaging protocol: Radiologic exam of the chest. Views: 1 view. COMPARISON: CR XR chest 1V portable [id number] 01/24/2021 9:59 PM FINDINGS: Lungs: Clear, symmetrically inflated lungs. Pleural spaces: No pleural effusion. No pneumothorax. Heart/Mediastinum: Cardiac silhouette is normal in size for technique. Bones/joints: Sclerosis noted in the right humeral neck, unchanged from prior. XR/XR chest 1V portable [id number] IMPRESSION: No acute cardiopulmonary abnormality.
--- NOTE | 2023-06-13 01:11 | CTR_ITS ---
PROCEDURE INFORMATION: Exam: CT Head Without Contrast Exam date and time: 06/13/2023 1:59 AM Age: 47 years old Clinical indication: Patient HX: EMS arrival for seizure; Additional info: AMS, ? seizure TECHNIQUE: Imaging protocol: Computed tomography of the head without contrast. Radiation optimization: All CT scans at this facility use at least one of these dose optimization techniques: automated exposure control; mA and/or kV adjustment per patient size (includes targeted exams where dose is matched to clinical indication); or iterative reconstruction. REPORTING DATA: Count of CT and Cardiac NM exams in prior 12 months: This patient has received [address] and 0 known cardiac nuclear medicine studies in the 12 months prior to the current study. COMPARISON: CT head wo con* [id number] 08/26/2022 11:37 PM RADIATION DOSE METRICS: Total DLP (mGy-cm): 1029.98 FINDINGS: Brain: No hemorrhage. Unremarkable white matter. No mass effect. Preserved lima-white interfaces. Cerebral ventricles: No ventriculomegaly. Paranasal sinuses: Mucosal thickening noted throughout the ethmoid air cells. Paranasal sinuses are otherwise clear. Mastoid air cells: Visualized mastoid air cells are well aerated. Bones/joints: Unremarkable. No acute fracture. Soft tissues: Unremarkable. CT/CT head wo con* [id number] IMPRESSION: No evidence of acute intracranial hemorrhage, mass effect, or edema.
[2023-06-13 01:21] LABS: Basophils # 0.1 10^3/uL (0.0-0.1); Basophils % 0.7 %; Eosinophils # 0.2 10^3/uL (0.0-0.8); Eosinophils % 2.5 %; Hematocrit 42.7 % (36-47); Lymphocytes # 4.1 10^3/uL (0.8-4.8); Mean Corpuscular Hemoglobin 30.7 pg (27-33); Mean Corpuscular Volume 90.3 fl (85-98); Mean Platelet Volume 8.8 fL (7.4-10.4); Monocytes # 0.4 10^3/uL (0.2-0.9); Monocytes % 5.2 %; Neutrophils # 2.83 10^3/uL (1.8-7.7); Neutrophils % 37.3 %; Nucleated Red Blood Cells % 0 %; Platelet Count 259 10^3/cmm (157-399); Red Blood Count 4.73 10^6/uL (3.85-5.65); White Blood Count 7.56 10^3/uL (3.29-11.43)
[2023-06-13 02:01] LABS: Add Urine Microscopic? YES; Bilirubin Urine Neg (Negative); Blood Urine Neg (Negative); Glucose Urine UA Norm (Normal); Ketones Urine Negative (Negative); Leukocyte Esterase Urine 2+ (Negative); Nitrate Urine Negative (Negative); Protein Urine Neg (Negative); Urine Appearance Hazy (CLEAR); Urine Color Light yellow (Yellow); Urobilinogen Urine Neg (Negative); pH Urine 5 (5-7)
[2023-06-13 02:02] LABS: Add Urine Culture? Yes; Amphetamines Screen Urine Positive (Negative); Bacteria Urine 1+ /hpf; Barbiturates Screen Urine Negative (Negative); Benzodiazepines Screen Urine Positive (Negative); Cocaine Screen Urine Negative (Negative); Opiate Screen Urine Negative (Negative); PCP Screen Urine Negative (Negative); THC Screen Urine Positive (Negative); Trichomonas Urine 2+ /hpf; WBC Urine 25-40 /hpf (0-5)
[2023-06-13 02:41] LABS: HCG, Serum Qual Negative (Negative)
[2023-06-13 02:57] LABS: Alanine Aminotransferase 49 U/L (0-33); Albumin Level 4.3 g/dL (3.5-5.2); Alcohol Level 176 mg/dL (0-10); Alkaline Phosphatase 139 U/L (35-105); Anion Gap 17.6 (5-19); Aspartate Amino Transferase 48 U/L (0-32); Blood Urea Nitrogen 16 mg/dL (6-20); Calcium 9.2 mg/dL (8.5-10.5); Carbon Dioxide 24 mmol/L (22-29); Chloride 104 mmol/L (98-107); Globulin 3.2 g/dL (1.3-4.6); Glomerular Filtration Rate 66.5 mL/min (90-130); Glucose 101 mg/dL (65-115); Osmolality Calculated 295 mOsm/kg (285-295); Potassium 3.6 mmol/L (3.5-5.1); Salicylate 0.6 mg/dL (3-10); Sodium 142 mmol/L (136-145); Thyroid Stimulating Hormone 7.14 uIU/mL (0.27-4.20); Total Bilirubin 0.2 mg/dL (0.15-1.2); Total Protein 7.5 g/dL (6.6-8.7)
[2023-06-13 02:58] LABS: Acetaminophen < 5.0 ug/mL (10-30)
[2023-06-13] MEDS: levETIRAcetam 1,000 MG/100 ML PREMIX 400 MG IV (02:58)
[2023-06-13] MEDS: sodium chloride 0.9% 1,000 ML 999 ML IV ×2 (03:01→03:45)
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
== END 2023-06-13 08:09 | disposition home or self-care (01) ==
PROVIDERS: Emergency Provider Emergency Medicine
DX: R56.9 Unspecified convulsions (principal); R45.6 Violent behavior; F10.129 Alcohol abuse with intoxication, unspecified; F19.10 Other psychoactive substance abuse, uncomplicated; Y90.6 Blood alcohol level of 120-199 mg/100 ml; Z72.0 Tobacco use
CPT/HCPCS: 36415; 70450; 71045; 80053; 80306; 80307; 81001; 84443; 84703; 85025; 87086; 93005; 96361; 96365; 96375; 99285; J1630; J1953; J2060; J7030

== ENCOUNTER 2024-01-04 20:37 | Emergency (ER) | payer MEDICAID, SELFPAY ==
[2024-01-04 20:38] VITALS: BP 156/124; PULSE 118; RESP 12; O2SAT 95; BMI 28.1
--- NOTE | 2024-01-04 20:46 | CTR_ITS ---
PROCEDURE INFORMATION: Exam: CT Head Without Contrast Exam date and time: 01/04/2024 9:01 PM Age: 48 years old Clinical indication: Altered mental status/memory loss; Additional info: AMS TECHNIQUE: Imaging protocol: Computed tomography of the head without contrast. Radiation optimization: All CT scans at this facility use at least one of these dose optimization techniques: automated exposure control; mA and/or kV adjustment per patient size (includes targeted exams where dose is matched to clinical indication); or iterative reconstruction. COMPARISON: CT head wo con* [id number] 06/13/2023 1:59 AM RADIATION DOSE METRICS: Total DLP (mGy-cm): 622 FINDINGS: Brain: Normal. No hemorrhage. Unremarkable white matter. No mass effect. Cerebral ventricles: No ventriculomegaly. Paranasal sinuses: Visualized sinuses are unremarkable. No fluid levels. Mastoid air cells: Visualized mastoid air cells are well aerated. Bones: Unremarkable. No acute fracture. Soft tissues: Unremarkable. CT/CT head wo con* [id number] IMPRESSION: No acute intracranial abnormality.
[2024-01-04 20:55] LABS: Basophils # 0.1 10^3/uL (0.0-0.1); Eosinophils # 0.2 10^3/uL (0.0-0.8); Eosinophils % 2.2 %; Hematocrit 43.5 % (36-47); Lymphocytes # 3.2 10^3/uL (0.8-4.8); Lymphocytes % 40.1 %; Mean Corpuscular HGB Conc 34.3 g/dL (30-55); Mean Corpuscular Volume 90.6 fl (85-98); Mean Platelet Volume 8.8 fL (7.4-10.4); Monocytes # 0.4 10^3/uL (0.2-0.9); Monocytes % 4.7 %; Neutrophils # 4.15 10^3/uL (1.8-7.7); Neutrophils % 51.8 %; Nucleated Red Blood Cells % 0 %; Platelet Count 212 10^3/cmm (157-399); Red Cell Distribution Width 12.5 % (12.1-15.1); White Blood Count 8.03 10^3/uL (3.29-11.43)
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
[2024-01-04 21:08] LABS: HCG, Serum Qual Negative (Negative)
[2024-01-04 21:14] LABS: Acetaminophen < 5.0 ug/mL (10-30); Alanine Aminotransferase 60 U/L (0-33); Albumin Level 4.3 g/dL (3.5-5.2); Alcohol Level 223 mg/dL (0-10); Alkaline Phosphatase 138 U/L (35-105); Anion Gap 19.1 (5-19); Aspartate Amino Transferase 52 U/L (0-32); Blood Urea Nitrogen 15 mg/dL (6-20); Calcium 9.2 mg/dL (8.5-10.5); Carbon Dioxide 23 mmol/L (22-29); Chloride 101 mmol/L (98-107); Creatinine Clr Calc Pharmacy 82.1889; Globulin 3.6 g/dL (1.3-4.6); Glomerular Filtration Rate 66.3 mL/min (90-130); Glucose 116 mg/dL (65-115); Osmolality Calculated 290 mOsm/kg (285-295); Potassium 4.1 mmol/L (3.5-5.1); Salicylate < 0.3 mg/dL (3-10); Sodium 139 mmol/L (136-145); Total Bilirubin 0.3 mg/dL (0.15-1.2); Total Protein 7.9 g/dL (6.6-8.7)
[2024-01-04 21:36] LABS: Add Urine Microscopic? NO; Charge for UA Resulting for Rev
[2024-01-04 21:40] LABS: Bilirubin Urine Neg (Negative); Blood Urine Neg (Negative); Glucose Urine UA Norm (Normal); Ketones Urine Negative (Negative); Leukocyte Esterase Urine Negative (Negative); Nitrate Urine Negative (Negative); Protein Urine Neg (Negative); Urine Appearance Clear (CLEAR); Urine Color Yellow (Yellow); Urobilinogen Urine Norm (Negative); pH Urine 7 (5-7)
[2024-01-04 21:49] LABS: Amphetamines Screen Urine Negative (Negative); Barbiturates Screen Urine Negative (Negative); Benzodiazepines Screen Urine Negative (Negative); Cocaine Screen Urine Negative (Negative); Opiate Screen Urine Negative (Negative); PCP Screen Urine Negative (Negative); THC Screen Urine Negative (Negative)
--- NOTE | 2024-01-04 22:00 | PC.NURSE ---
pt refusing ekg and further treatment and monitoring at this time. pt able to articulate name, , location, and situation. MD notified.
[2024-01-04 22:55] VITALS: BP 156/124; PULSE 118; RESP 12; O2SAT 95
== END 2024-01-04 22:40 | disposition home or self-care (01) ==
PROVIDERS: Emergency Provider Emergency Medicine
DX: T65.91XA Toxic effect of unspecified substance, accidental (unintentional), initial encounter (principal); F10.129 Alcohol abuse with intoxication, unspecified; Y90.7 Blood alcohol level of 200-239 mg/100 ml; Z72.0 Tobacco use
CPT/HCPCS: 70450; 80053; 80306; 80307; 81003; 84703; 85025; 99284; 99291

== ENCOUNTER 2025-05-12 14:15 | Emergency (ER) | payer MEDICAID, SELFPAY ==
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
[2025-05-12 14:23] VITALS: BMI 23.5
== END 2025-05-12 14:25 | disposition home or self-care (01) ==
PROVIDERS: Emergency Provider Emergency Medicine
DX: F10.129 Alcohol abuse with intoxication, unspecified (principal); Y90.9 Presence of alcohol in blood, level not specified
CPT/HCPCS: 99283